=== PATIENT | female | born 2000 | race Two or more races ===

== ENCOUNTER 2024-04-26 03:37 | Emergency (ER) | payer MEDICAID, SELFPAY ==
[2024-04-26 03:53] VITALS: BP 114/72; PULSE 152; RESP 28; TEMP 37.6; O2SAT 100
--- NOTE | 2024-04-26 03:54 | XR_ITS ---
Examination: PA lateral chest 2 views Technique: Upright PA lateral chest 2 views Exam date and time: April 26, 2024 0407 hrs. Comparison August 23, 2018 Indications: Coughing wheezing fever today Findings: Normal heart size Lungs are clear. The osseous structures are intact Impression: No active disease
--- NOTE | 2024-04-26 03:55 | PD.EDSOB ---
ED SOB =RME/HPI General Chief Complaint: Abdominal Pain Stated Complaint: LOWER ABD PAIN, CHEST PAIN Time Seen by Provider: 04/26/24 03:46 Source: patient Arrival date/time: 04/26/24 03:37 23-year-old female with a history of asthma presents to the emergency room with a chief complaint of lower abdominal pain, shortness of breath, weakness, chest pain since 2 AM this morning. Mode of arrival: ambulatory Limitations: no limitations Related Data Previous Rx's ?Medication ?Instructions ?Recorded ondansetron 4 mg disintegrating 4 mg PO Q8H PRN nausea and 08/22/23 tablet vomiting #10 tabs Allergies Allergy/AdvReac Type Severity Reaction Status Date / Time No Known Allergies Allergy Verified 11/18/18 17:17 ED Exam General Limitations: Present no limitations Course Orders Category Date Time Status Bedside COVID-19 Antigen Test NOW Care 04/26/24 03:54 Active Bedside Influenza A&B Antigen Test NOW Care 04/26/24 03:54 Active XR chest 2V Stat Exams 04/26/24 03:54 Ordered Albuterol/Ipratr Rt Kathrine [Duoneb Rt Kathrine] Med 04/26/24 03:54 Discontinued 3 ml INH X1 ONE Dexamethasone Inj [Decadron Inj] Med 04/26/24 03:54 Discontinued 10 mg PO X1 ONE Vital Signs Vital signs: Vital Signs Temperature 99.6 F 04/26/24 03:53 Pulse Rate 152 H 04/26/24 03:53 Respiratory Rate 28 H 04/26/24 03:53 Blood Pressure 114/72 04/26/24 03:53 Pulse Oximetry (%) 100 04/26/24 03:53 Oxygen Delivery Method Room Air 04/26/24 03:53 Shortness of Breath / Dyspnea Medications / Prescriptions Medication administrations:: Medication Administration History Discontinued Medications Albuterol/Ipratropium (Albuterol/Ipratropium (Duoneb) Rt Kathrine 3 Ml Nebu) 3 ml INH X1 ONE Stop: 04/26/24 03:55 Dexamethasone Sodium Phosphate (Dexamethasone Sod Phos Inj 10 Mg/Ml Vial) 10 mg PO X1 ONE Stop: 04/26/24 03:55 Discharge Plan Prescriptions/Referrals Prescriptions/Med Rec: No Action ondansetron 4 mg tablet,disintegrating 4 mg PO Q8H PRN (Reason: nausea and vomiting) Qty: 10 0RF Patient/Caregiver Discharge Instructions Print Language: Chadian
--- NOTE | 2024-04-26 03:56 | EKG_ITS ---
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
[2024-04-26] MEDS: ONDANSETRON ODT 4 MG TABRAP PO ×2 (04:14→10:13)
[2024-04-26] MEDS: DEXAMETHASONE SOD PHOS INJ 10 MG/ML VIAL PO (04:15)
[2024-04-26 04:23] VITALS: PULSE 133; RESP 21; O2SAT 99
[2024-04-26] MEDS: ALBUTEROL/IPRATROPIUM (Duoneb) RT SOL 3 ML NEBU INH (04:23)
--- NOTE | 2024-04-26 04:42 | PD.EDRME ---
Rapid Medical Screening Exam [facility] Arrival date/time: 04/26/24 03:37 23-year-old female with a history of asthma presents to the emergency room with a chief complaint of lower abdominal pain, shortness of breath, weakness, chest pain since 2 AM this morning. I have greeted and performed a focused initial assessment of this patient. A comprehensive ED assessment and evaluation of the patient, analysis of all test results, and completion of the medical decision making process will be conducted by additional ED providers. Chief Complaint: Abdominal Pain Time Seen by Provider: 04/26/24 03:46 Vital signs: Vital Signs Temperature 99.6 F 04/26/24 03:53 Pulse Rate 152 H 04/26/24 03:53 Respiratory Rate 28 H 04/26/24 03:53 Blood Pressure 114/72 04/26/24 03:53 Pulse Oximetry (%) 100 04/26/24 03:53 Oxygen Delivery Method Room Air 04/26/24 03:53 Vital signs reviewed by provider: Yes
[2024-04-26 05:05] LABS: Basophils % (Auto) 0 % (0-2.5); Eosinophils # (Auto) 0.1 Thou/mm3 (0.0-0.5); Eosinophils % (Auto) 0 % (0-10); Hematocrit 36.4 % (36.0-46.0); Hemoglobin 12.5 g/dL (12.0-16.0); Immature Granulocytes % (Auto) 0 % (0-0); Immature Granulocytes Auto 0.04 Thou/mm3 (0.00-0.00); Lymphocytes # (Auto) 1.3 Thou/mm3 (1.0-4.8); Lymphocytes % (Auto) 9 % (10-50); Mean Corpuscular HGB Conc 34.3 g/dl (31.0-37.0); Mean Corpuscular Hemoglobin 26.7 pg (25.0-35.0); Mean Corpuscular Volume 78 fL (80-100); Monocytes % (Auto) 6 % (0-12); Neutrophils # (Auto) 12.6 Thou/mm3 (1.8-7.7); Neutrophils % (Auto) 84 % (37-80); Nucleated Red Blood Cell % 0 /100 WBC (0); Platelet Count 335 Thou/mm3 (140-440); RDW Standard Deviation 37.1 fL (36.4-46.3); Red Blood Count 4.69 Miln/mm3 (4.00-5.20)
[2024-04-26 05:26] LABS: Collection Type, Urine Clean Catch
[2024-04-26 05:37] LABS: Alanine Aminotransferase 11 U/L (10-49); Albumin, Serum 4.8 gm/dL (3.5-5.0); Albumin/Globulin Ratio 1.5 (1.2-2.2); Alkaline Phosphatase 70 U/L (46-116); Anion Gap 12 (7-16); Aspartate Amino Transferase 13 U/L (0-34); BUN/Creatinine Ratio 15 Ratio (12-20); Bilirubin,Total 0.5 mg/dL (0.3-1.2); Blood Urea Nitrogen 9 mg/dL (9-23); Calcium 9.5 mg/dL (8.3-10.6); Calcium (Corrected) 9.5 mg/dL (8.5-10.1); Carbon Dioxide 19.4 mMol/L (20.0-31.0); Chloride 104 mMol/L (98-107); Creatinine (Component) 0.6 mg/dL (0.6-1.3); Globulin 3.2 gm/dL (2.3-3.5); Glucose 111 mg/dL (74-106); Lipase 36 U/L (12-53); Osmolality,Calculated 269 (275-295); Potassium 3.8 mMol/L (3.4-5.1); Sodium 135 mMol/L (136-145); Troponin I < 0.002 ng/mL (0.0-0.045); eGFR > 60 See Note
[2024-04-26 05:42] LABS: Bacteria,Urine 2+; Bilirubin,Urine Negative (Negative); Blood,Urine Negative (Negative); Clarity,Urine Turbid (Clear/Hazy); Color,Urine Yellow (Lt Yel-Yel); Glucose, Urine Negative (Negative); Hyaline Casts,Urine < 1 /hpf (0-1); Ketones,Urine 1+ (Negative); Leukocyte Esterase,Urine Negative (Negative); Nitrite,Urine Negative (Negative); Protein,Urine 1+ (Neg - Trace); RBC,Urine 10 /hpf (0-3); Specific Gravity,Urine 1.026 (1.001-1.035); Squamous Epithelial Cell,Urine 7 /hpf (0-5); Urobilinogen,Urine Negative mg/dL (0.0-1.0); WBC,Urine 3 /hpf (0-5)
[2024-04-26 06:04] LABS: Culture Indicated,Urine Yes
[2024-04-26 06:22] LABS: HCG Qualitative,Urine Negative
[2024-04-26 07:06] VITALS: BP 117/80; PULSE 99; RESP 18; TEMP 37.2; O2SAT 98
--- NOTE | 2024-04-26 07:39 | XR_ITS ---
Examination: Retroperitoneal ultrasound, complete Technique: Multiple high resolution grayscale images of the retroperitoneum obtained, including kidneys and bladder. Exam date and time:April 26, 2024 at 0818 hrs. Indications: Burning sensation with urination beginning last night Findings: Right kidney 11.7 x 6.1 x 5.2 cm cortex 1.4 cm Left kidney 10.8 x 4.9 x 4.8 cm in the cortex 2.3 cm Mild left renal parenchymal scar formation No hydronephrosis Contracted urinary bladder, 0.78 cc Impression: Mild left renal parenchymal scar formation No hydronephrosis or ureteral calculi
--- NOTE | 2024-04-26 07:39 | XR_ITS ---
Examination: Pelvic ultrasound, transabdominal, complete Technique: Transabdominal ultrasound of the pelvis performed using grayscale imaging Date and time of exam: April 26, 2024 0806 hrs. Indications: Right pelvic pain beginning last night Findings: Uterus 6.8 x 3.3 x 4.1 cm No uterine mass or intrauterine gestation Endometrial stripe 1.1 cm Right ovary 2.6 x 1.8 x 1.8 cm arterial flow mild free fluid in the right adnexal region Left ovary 3.3 x 1.7 x 3.0 cm arterial flow Mild free fluid medial to the ovary Impression: No uterine mass or intrauterine gestation Mild free fluid in the adnexal regions, differential would include pelvic inflammatory disease
[2024-04-26 07:49] VITALS: BMI 28.7
--- NOTE | 2024-04-26 07:55 | EDNOTE_ITS ---
ED Abdominal Pain RME/HPI General Chief Complaint: Abdominal Pain Stated complaint: LOWER ABD PAIN, CHEST PAIN Time seen by provider: 04/26/24 03:46 Arrival date/time: 04/26/24 03:37 RME / HPI RME / HPI narrative: DR. LUTZ MAIN ED EVALUATION: 23 year old female, otherwise healthy, presents to the Emergency Department with complaint of lower abdominal pain onset 2 AM. Associated symptoms include mild shortness of breath, generalized weakness and chest pain. Symptoms are moderate. No vomiting, diarrhea, or other symptoms reported at this time. Related Data Previous Rx's ?Medication ?Instructions ?Recorded ondansetron 4 mg disintegrating 4 mg PO Q8H PRN nausea and 08/22/23 tablet vomiting #10 tabs Allergies Allergy/AdvReac Type Severity Reaction Status Date / Time No Known Allergies Allergy Verified 11/18/18 17:17 Review of Systems Review of Systems Systems Reviewed: All systems reviewed, normal except as documented Narrative Review of Systems: GEN: No fever, no chills, no weight loss EYES: No discharge, no visual changes, no pain HEENT: No ear pain, no congestion, no sore throat PULM: + mild shortness of breath, no cough, no congestion CV: + chest pain, no dyspnea on exertion, no palpitations GI: No nausea, no vomiting, no diarrhea, + lower abdominal pain, no constipation : No frequency, no urgency and no dysuria MUSC/SKEL: No joint pain, no back pain SKIN: No rash PSYCH: No hallucinations, no depression HEME/LYMPH: No easy bleeding or bruising tendencies NEURO: + generalized weakness, no one-sided weakness, no headache Past Medical History Past Medical History CARDIAC: Negative Cardiac Disorders or Congestive Heart Failure RESPIRATORY: Positive Asthma; Negative Chronic Obstructive Pulmonary Disease (COPD) GENITOURINARY: Negative Renal Disease ENDOCRINE: Negative Diabetes Mellitus Type 1 or Diabetes Mellitus Type 2 HEMATOLOGIC: Negative Sickle Cell Disease Social History SMOKING STATUS: Never smoker SUBSTANCE USE: does not use ALCOHOL: Never ED Exam Narrative Physical exam: GENERAL APPEARANCE: alert and oriented x 4, well-developed, well-nourished, no acute distress VITALS: All vitals were reviewed and the pulse ox is 98% on room air, which is normal according to my interpretation. HEENT: Normocephalic, atraumatic; pupils equal, round, reactive to light; EOMI; mucous membranes pink, moist; oropharynx clear NECK: Supple LUNGS: CTABL; no wheezes, no rales, no rhonchi HEART: Regular rate, regular rhythm; normal S1, S2; no murmurs ABDOMEN: non distended; normal BS; soft, no tenderness, no guarding, no rebound; no masses, no organomegaly, no hernia BACK: no CVA tenderness EXTREMITIES: atraumatic; no edema NEUROLOGIC: awake; alert and oriented x4; cranial nerves II-XII grossly intact; no focal sensory or motor deficits PSYCHIATRIC: appropriate mood and affect SKIN: warm, dry, normal color; no rashes Course Quality Measures none Orders Category Date Time Status Bedside COVID-19 Antigen Test NOW Care 04/26/24 03:54 Completed Bedside Influenza A&B Antigen Test NOW Care 04/26/24 03:54 Completed EKG (ED ONLY) *Do not use* NOW Care 04/26/24 03:56 Completed EKG (ED Only) Stat Exams 04/26/24 03:56 Ordered US pelvic complete Stat Exams 04/26/24 07:39 Completed US renal BI Stat Exams 04/26/24 07:39 Completed XR chest 2V Stat Exams 04/26/24 03:54 Completed CBC Stat Lab 04/26/24 04:36 Completed CMP [Comprehensive Metabolic Panel] Stat Lab 04/26/24 04:36 Completed HCG Qualitative,Urine Stat Lab 04/26/24 05:06 Completed Lipase Stat Lab 04/26/24 04:36 Completed Troponin I Stat Lab 04/26/24 04:36 Completed UA, C/S IF [Urinalysis, C/S if Indicated] Stat Lab 04/26/24 05:06 Completed Urine Culture Stat Lab 04/26/24 05:06 Received Albuterol/Ipratr Rt Kathrine [Duoneb Rt Kathrine] Med 04/26/24 03:54 Discontinued 3 ml INH X1 ONE Dexamethasone Inj [Decadron Inj] Med 04/26/24 03:54 Discontinued 10 mg PO X1 ONE Ibuprofen Tab [Motrin Tab] Med 04/26/24 09:56 Discontinued 600 mg PO X1 ONE Ondansetron Odt [Zofran Odt] Med 04/26/24 03:56 Discontinued 4 mg PO X1 ONE Ondansetron Odt [Zofran Odt] Med 04/26/24 09:56 Discontinued 4 mg PO X1 ONE Vital Signs Vital signs: Vital Signs Temperature 99.6 F 04/26/24 03:53 Pulse Rate 152 H 04/26/24 03:53 Respiratory Rate 28 H 04/26/24 03:53 Blood Pressure 114/72 04/26/24 03:53 Pulse Oximetry (%) 100 04/26/24 03:53 Oxygen Delivery Method Room Air 04/26/24 03:53 Abdominal Pain MDM MDM Narrative MDM Narrative:: I, Breana Aquino, rashaad scribing for and in the presence of Dr. Lutz. Patient data External records reviewed:: [facility] previous records (Reviewed last ED visit dated 08/23/23, discharged with the following: Abdominal pain) Clinical information provided by:: patient Social determinants that could affect healthcare access:: none Patient has the following chronic illnesses:: Denies any PMHx, surgeries, daily medications, or known allergies. How is presenting disease/condition affected by chronic disease/condition?: no chronic disease Evaluation data The following diagnostics were reviewed and interpreted by me:: lab results and radiology exam(s) Lab and/or radiology exams considered but not ordered:: none Interpretation Summary: Procedure(s): US renal BI Accession Number(s): [id number] cc: Leonardo Lopez MD; Bari Hinds; Cristina Lutz MD~ Examination: Retroperitoneal ultrasound, complete Technique: Multiple high resolution grayscale images of the retroperitoneum obtained, including kidneys and bladder. Exam date and time:April 26, 2024 at 0818 hrs. Indications: Burning sensation with urination beginning last night Findings: Right kidney 11.7 x 6.1 x 5.2 cm cortex 1.4 cm Left kidney 10.8 x 4.9 x 4.8 cm in the cortex 2.3 cm Mild left renal parenchymal scar formation No hydronephrosis Contracted urinary bladder, 0.78 cc Impression: Mild left renal parenchymal scar formation No hydronephrosis or ureteral calculi Dictated By: Leonardo Lopez MD Procedure(s): US pelvic complete Accession Number(s): [id number] cc: Leonardo Lopez MD; Bari Hinds; Cristina Lutz MD~ Examination: Pelvic ultrasound, transabdominal, complete Technique: Transabdominal ultrasound of the pelvis performed using grayscale imaging Date and time of exam: April 26, 2024 0806 hrs. Indications: Right pelvic pain beginning last night Findings: Uterus 6.8 x 3.3 x 4.1 cm No uterine mass or intrauterine gestation Endometrial stripe 1.1 cm Right ovary 2.6 x 1.8 x 1.8 cm arterial flow mild free fluid in the right adnexal region Left ovary 3.3 x 1.7 x 3.0 cm arterial flow Mild free fluid medial to the ovary Impression: No uterine mass or intrauterine gestation Mild free fluid in the adnexal regions, differential would include pelvic inflammatory disease Dictated By: Leonardo Lopez MD Procedure(s): XR chest 2V Accession Number(s): [id number] cc: Semaj Valdivia; Leonardo Lopez MD; Bari Hinds~ Examination: PA lateral chest 2 views Technique: Upright PA lateral chest 2 views Exam date and time: April 26, 2024 0407 hrs. Comparison August 23, 2018 Indications: Coughing wheezing fever today Findings: Normal heart size Lungs are clear. The osseous structures are intact Impression: No active disease Dictated By: Leonardo Lopez MD Medications / Prescriptions Medications or Prescriptions considered but not ordered:: none Medication administrations:: Medication Administration History Discontinued Medications Albuterol/Ipratropium (Albuterol/Ipratropium (Duoneb) Rt Kathrine 3 Ml Nebu) 3 ml INH X1 ONE Stop: 04/26/24 03:55 Last Admin: 04/26/24 04:23 Dose: 3 ml Documented By: NILAY Dexamethasone Sodium Phosphate (Dexamethasone Sod Phos Inj 10 Mg/Ml Vial) 10 mg PO X1 ONE Stop: 04/26/24 03:55 Last Admin: 04/26/24 04:15 Dose: 10 mg Documented By: DOLORES Ibuprofen (Ibuprofen Tab 600 Mg Tablet) 600 mg PO X1 ONE Stop: 04/26/24 09:57 Last Admin: 04/26/24 10:13 Dose: 600 mg Documented By: CYNTHIA Ondansetron HCl (Ondansetron Odt 4 Mg Tabrap) 4 mg PO X1 ONE; Protocol Stop: 04/26/24 03:57 Last Admin: 04/26/24 04:14 Dose: 4 mg Documented By: DOLORES Ondansetron HCl (Ondansetron Odt 4 Mg Tabrap) 4 mg PO X1 ONE; Protocol Stop: 04/26/24 09:57 Last Admin: 04/26/24 10:13 Dose: 4 mg Documented By: CYNTHIA see above Consultations Consultation(s) initiated? (list below): No Diagnosis Differential diagnosis abdominal pain: abdominal pain, calculus of kidney and other (pyelonephritis, UTI) Most likely diagnosis given after review of the tests above:: Abdominal pain Admission Indicated Admission indicated?: not indicated Admission Request Was there a request for admission?: No Disposition Plan Disposition Plan: Discharge Discharge Attestation Discharge Attestation: The patient and all family members were given an opportunity to ask questions and understood the discharge instructions. Discharge instructions specifically effects, indications for sooner follow up or return to the emergency department, and the expected course of current diagnosis. Patient condition: Stable Discharge Plan Plan Patient Disposition: HOME (Self Care) Prescriptions/Referrals Prescriptions/Med Rec: No Action ondansetron 4 mg tablet,disintegrating 4 mg PO Q8H PRN (Reason: nausea and vomiting) Qty: 10 0RF Referrals: Bari Hinds FNP [Primary Care Provider] - In 1 week Problem List Clinical Impression: Abdominal pain Patient/Caregiver Discharge Instructions Education Materials: ED Abdominal Pain Unkn Cause Fem Print Language: Ghanaian Stand Alone Forms: [place] Award Info., Work/School Release, Patient Portal Info Letter
[2024-04-26] MEDS: IBUPROFEN TAB 600 MG TABLET PO (10:13)
[2024-04-26 10:22] VITALS: BP 120/82; PULSE 91; RESP 18; TEMP 37.4; O2SAT 98
--- NOTE | 2024-04-26 11:30 | PC.NURSE ---
pt given fluids and sandwich, tolerated PO challenge well.
[2024-04-26 12:00] VITALS: BP 120/82; PULSE 87; RESP 16; TEMP 36.8; O2SAT 99
[2024-04-26 12:33] VITALS: BP 124/62; PULSE 90; RESP 16; TEMP 37.2; O2SAT 100
== END 2024-04-26 12:34 | disposition home or self-care (01) ==
PROVIDERS: Nurse Practitioner Family; Emergency Provider Emergency Medicine; PCP Nurse Practitioner Family
DX: R10.30 Lower abdominal pain, unspecified (principal)
CPT/HCPCS: 36415; 71046; 76770; 76856; 80053; 81001; 81025; 83690; 84484; 85025; 87086; 87400; 87811; 93005; 94640; 99284; A9270; J1100; Q0162

== ENCOUNTER → 2024-04-29 | Outpatient (CLI) | payer MEDICAID, SELFPAY ==
--- NOTE | 2024-04-29 13:34 | XR_ITS ---
Examination: PA lateral chest 2 views TECHNIQUE: Upright PA lateral chest 2 views Exam date and time: April 29, 2024 1436 hours Comparison April 26, 2024 INDICATIONS: Dyspnea chest pain and chest tightness beginning one week ago FINDINGS: Normal heart size Minor scarring at the left base No lobar pneumonia No pulmonary edema Intact osseous structures IMPRESSION: No lobar pneumonia identified
== END | disposition home or self-care (01) ==
PROVIDERS: PCP Nurse Practitioner Family; Referring Provider Nurse Practitioner Family; Visit Provider Nurse Practitioner Family
DX: R05.9 Cough, unspecified (principal)
CPT/HCPCS: 71046

== ENCOUNTER 2024-05-01 05:15 | Emergency (ER) | payer MEDICAID, SELFPAY ==
[2024-05-01 05:23] VITALS: BP 125/86; PULSE 115; RESP 19; TEMP 37.4; O2SAT 98; BMI 25.8
--- NOTE | 2024-05-01 05:33 | XR_ITS ---
Examination: PA lateral chest 2 views Technique: Upright PA lateral chest 2 views Exam date and time: May 01, 2024 0538 hrs. Comparison April 29, 2024 Indications: SOB beginning 1.5 weeks ago Findings: Normal heart size Lungs are clear. The osseous structures are intact Impression: No active disease
--- NOTE | 2024-05-01 05:35 | EDRME_ITS ---
Rapid Medical Screening Exam [facility] Arrival date/time: 05/01/24 05:15 23-year-old female with no known medical history presents to the emergency room with a chief complaint of cough, congestion, fevers, night sweats, and bruising to the bilateral lower extremities. Patient denies any trauma or falls. I have greeted and performed a focused initial assessment of this patient. A comprehensive ED assessment and evaluation of the patient, analysis of all test results, and completion of the medical decision making process will be conducted by additional ED providers. Chief Complaint: Back Pain/Injury Vital signs: Vital Signs Temperature 99.3 F 05/01/24 05:23 Pulse Rate 115 H 05/01/24 05:23 Respiratory Rate 19 05/01/24 05:23 Blood Pressure 125/86 H 05/01/24 05:23 Pulse Oximetry (%) 98 05/01/24 05:23 Oxygen Delivery Method Room Air 05/01/24 05:23 Vital signs reviewed by provider: Yes
[2024-05-01] MEDS: ACETAMINOPHEN 325 MG TABLET 650 MG PO (05:47)
[2024-05-01 06:26] LABS: Lactate (Lactic Acid) 0.8 mMol/L (0.4-2.0)
[2024-05-01 06:48] LABS: Basophils % (Auto) 0 % (0-2.5); Eosinophils % (Auto) 0 % (0-10); Hemoglobin 11.8 g/dL (12.0-16.0); Immature Granulocytes % (Auto) 0 % (0-0); Immature Granulocytes Auto 0.04 Thou/mm3 (0.00-0.00); Lymphocytes # (Auto) 2.1 Thou/mm3 (1.0-4.8); Lymphocytes % (Auto) 18 % (10-50); Mean Corpuscular HGB Conc 33.7 g/dl (31.0-37.0); Mean Corpuscular Hemoglobin 26.3 pg (25.0-35.0); Mean Corpuscular Volume 78 fL (80-100); Monocytes # (Auto) 0.7 Thou/mm3 (0.0-0.8); Monocytes % (Auto) 6 % (0-12); Neutrophils # (Auto) 8.5 Thou/mm3 (1.8-7.7); Neutrophils % (Auto) 75 % (37-80); Nucleated Red Blood Cell % 0 /100 WBC (0); Platelet Count 417 Thou/mm3 (140-440); RDW Standard Deviation 37.6 fL (36.4-46.3); Red Blood Count 4.48 Miln/mm3 (4.00-5.20); White Blood Count 11.4 Thou/mm3 (3.6-11.0)
[2024-05-01 07:18] LABS: Alanine Aminotransferase 9 U/L (10-49); Albumin, Serum 4.5 gm/dL (3.5-5.0); Albumin/Globulin Ratio 1.5 (1.2-2.2); Alkaline Phosphatase 67 U/L (46-116); Anion Gap 9 (7-16); Aspartate Amino Transferase < 8 U/L (0-34); BUN/Creatinine Ratio 10 Ratio (12-20); Bilirubin,Total 0.4 mg/dL (0.3-1.2); Blood Urea Nitrogen 7 mg/dL (9-23); C-Reactive Protein 7.7 mg/dL (0.0-0.9); Calcium 9.3 mg/dL (8.3-10.6); Calcium (Corrected) 9.3 mg/dL (8.5-10.1); Carbon Dioxide 21.8 mMol/L (20.0-31.0); Chloride 106 mMol/L (98-107); Creatinine (Component) 0.7 mg/dL (0.6-1.3); Estimated Creatinine Clearance 115.3 mL/min (>60); Glucose 108 mg/dL (74-106); Osmolality,Calculated 272 (275-295); Potassium 3.8 mMol/L (3.4-5.1); Procalcitonin 0.08 ng/ml (0.0-0.49); Sodium 137 mMol/L (136-145); Total Protein 7.5 gm/dL (5.7-8.2); eGFR > 60 See Note
[2024-05-01 08:10] VITALS: BP 116/79; PULSE 70; RESP 18; TEMP 36.8; O2SAT 99
--- NOTE | 2024-05-01 08:13 | PD.EDADULT ---
ED General RME/HPI General Chief complaint: Back Pain/Injury Stated complaint: Lower back pain, Wrist pain Time Seen by Provider: 05/01/24 06:26 Arrival date/time: 05/01/24 05:15 23-year-old female presents emergency department complaint of generalized bodyaches, cough, congestion and fever and bruising to bilateral lower extremities patient for symptoms ongoing x 1 week Limitations: no limitations RME / HPI RME / HPI narrative: 05/01/24 05:15 23-year-old female with no known medical history presents to the emergency room with a chief complaint of cough, congestion, fevers, night sweats, and bruising to the bilateral lower extremities. Patient denies any trauma or falls. I have greeted and performed a focused initial assessment of this patient. A comprehensive ED assessment and evaluation of the patient, analysis of all test results, and completion of the medical decision making process will be conducted by additional ED providers. Related Data Previous Rx's ?Medication ?Instructions ?Recorded ondansetron 4 mg disintegrating 4 mg PO Q8H PRN nausea and 08/22/23 tablet vomiting #10 tabs acetaminophen 500 mg capsule 1,000 mg (2 x 500 mg) PO Q8HR PRN 05/01/24 pain #30 caps ibuprofen 600 mg tablet 600 mg PO Q6H #30 tabs 05/01/24 Allergies Allergy/AdvReac Type Severity Reaction Status Date / Time No Known Allergies Allergy Verified 11/18/18 17:17 Review of Systems Review of Systems Systems Reviewed: All systems reviewed, normal except as documented Constitutional Constitutional: Reports system reviewed and no additional complaints, except as documented, Reports body ache(s), Reports chills, Reports fatigue, Reports fever(s) and Reports headache(s) Eyes Eyes: Reports system reviewed and no additional complaints, except as documented and Denies blurry vision ENT Ears, Nose, Mouth, and Throat: Reports system reviewed and no additional complaints, except as documented, Reports headache(s), Denies nasal congestion and Reports nasal discharge Cardiovascular Cardiovascular: Reports system reviewed and no additional complaints, except as documented, Denies chest pain and Denies dyspnea Respiratory Respiratory: Reports system reviewed and no additional complaints, except as documented, Denies chest congestion, Denies cough and Denies dyspnea Gastrointestinal Gastrointestinal: Reports system reviewed and no additional complaints, except as documented and Denies abdominal pain Integumentary/Breasts Skin/Breast: Reports system reviewed and no additional complaints, except as documented, Denies rash and Reports other (Bilateral lower extremity erythema nodosum) Neurologic Neurologic: Reports system reviewed and no additional complaints, except as documented, Reports as per HPI and Reports headache(s) Endocrine Endocrine: Reports fatigue Past Medical History Past Medical History CARDIAC: Negative Cardiac Disorders or Congestive Heart Failure RESPIRATORY: Positive Asthma; Negative Chronic Obstructive Pulmonary Disease (COPD) GENITOURINARY: Negative Renal Disease ENDOCRINE: Negative Diabetes Mellitus Type 1 or Diabetes Mellitus Type 2 HEMATOLOGIC: Negative Sickle Cell Disease Social History SMOKING STATUS: Never smoker SUBSTANCE USE: does not use ED Exam General Limitations: Present no limitations General appearance: Present alert and in no apparent distress Head Head exam: Present atraumatic, normocephalic and normal inspection Eye Eye exam: Present normal appearance, PERRL and EOMI; Absent conjunctival injection ENT ENT exam: Present normal exam, normal oropharynx and mucous membranes moist Neck Neck exam: Present normal inspection, full ROM and trachea midline; Absent tenderness, meningismus or lymphadenopathy Chest Chest inspection: Present normal inspection and symmetric chest wall rise Respiratory Respiratory exam: Present normal lung sounds bilaterally; Absent respiratory distress, wheezes, stridor or accessory muscle use Cardiovascular Cardiovascular exam: Present regular rate, normal rhythm and normal heart sounds Abdominal Exam Abdominal exam: Present soft and normal bowel sounds; Absent distention, tenderness, guarding, rebound or rigidity Extremities Exam Extremities exam: Present full ROM and other (Erythema nodosum bilateral lower extremities) Back Exam Back exam: Present normal inspection and full ROM Neurological Exam Neurological exam: Present alert, oriented X3, CN II-XII intact, normal gait and reflexes normal; Absent motor sensory deficit Psychiatric Psychiatric exam: Present normal affect and normal mood Skin Skin exam: Present warm, dry, intact and normal color; Absent rash Course Quality Measures none Orders Category Date Time Status Bedside COVID-19 Antigen Test NOW Care 05/01/24 05:34 Completed Bedside Influenza A&B Antigen Test NOW Care 05/01/24 05:34 Completed XR chest 2V Stat Exams 05/01/24 05:33 Completed CBC Stat Lab 05/01/24 06:15 Completed CMP [Comprehensive Metabolic Panel] Stat Lab 05/01/24 06:15 Completed CRP [C-Reactive Protein] Stat Lab 05/01/24 06:15 Completed Cocci Serology IgM with reflex to IgG [Cocci Serology, Lab 05/01/24 06:15 Completed Unk History] Stat ESR [Sed Rate (ESR)] Stat Lab 05/01/24 06:15 Completed HCG Qualitative,Urine Stat Lab 05/01/24 08:15 Completed Lactate (Lactic Acid) Stat Lab 05/01/24 06:15 Completed Procalcitonin Stat Lab 05/01/24 06:15 Completed UA, C/S IF [Urinalysis, C/S if Indicated] Stat Lab 05/01/24 08:15 Completed Acetaminophen Tab [Tylenol Tab] Med 05/01/24 05:38 Discontinued 650 mg PO X1 ONE Vital Signs Vital signs: Vital Signs Temperature 99.3 F 05/01/24 05:23 Pulse Rate 115 H 05/01/24 05:23 Respiratory Rate 19 05/01/24 05:23 Blood Pressure 125/86 H 05/01/24 05:23 Pulse Oximetry (%) 98 05/01/24 05:23 Oxygen Delivery Method Room Air 05/01/24 05:23 O2 saturation 98% room air within normal limits [facility] Patient data External records reviewed:: [facility] previous records Clinical information provided by:: patient and parent Social determinants that could affect healthcare access:: none Patient has the following chronic illnesses:: None How is presenting disease/condition affected by chronic disease/condition?: no chronic disease Evaluation data The following diagnostics were reviewed and interpreted by me:: lab results and radiology exam(s) Lab and/or radiology exams considered but not ordered:: Labs radiology obtain Interpretation Summary: Reviewed by me Medications Medications considered but not ordered:: Given Medication administrations:: Medication Administration History Discontinued Medications Acetaminophen (Acetaminophen 325 Mg Tablet) 650 mg PO X1 ONE Stop: 05/01/24 05:39 Last Admin: 05/01/24 05:47 Dose: 650 mg Documented By: CVL Given Consultations Consultation(s) initiated? (list below): No Diagnosis Differential Diagnosis ED Complaint MDM: URI, viral illness, COVID-19, pneumonia, cocci Most likely diagnosis given after review of the tests above:: Influenza, cocci Admission Indicated Admission indicated?: not indicated Explain why admission is indicated or not indicated:: No criteria Admission Request Was there a request for admission?: No Disposition Plan Disposition Plan: Discharge Discharge Attestation Discharge Attestation: The patient and all family members were given an opportunity to ask questions and understood the discharge instructions. Discharge instructions specifically effects, indications for sooner follow up or return to the emergency department, and the expected course of current diagnosis. Patient condition: Stable Medical Decision Making MDM Narrative MDM Narrative: 23-year-old female presents emergency department complaint of generalized bodyaches, cough, congestion and fever and bruising to bilateral lower extremities patient for symptoms ongoing x 1 week Lab work and imaging obtained by my colleague Patient does have erythema nodosum lower extremities I suspect patient may have coccidiomycosis Lab work obtained chest x-ray obtained Patient tested positive for influenza Cocci is pending At time of discharge patient reports symptoms have improved patient walks with steady gait, patient has strict instructions to return immediately for worsening symptoms Patient discharged home in no distress to follow-up with primary care doctor in the next 24 to 48 hours and for any worsening symptoms to return to the ER immediately Differential Diagnosis Differential Diagnosis: URI, viral illness, COVID-19, pneumonia, cocci Medical Records Medical records reviewed: Yes I reviewed the patient's medical records. Lab Data Lab results reviewed: Yes I reviewed the patient's lab results. 05/01/24 06:15 05/01/24 06:15 Labs: Lab Results 05/01/24 05/01/24 Range/Units 06:15 08:15 WBC 11.4 H (3.6-11.0) Thou/mm3 RBC 4.48 (4.00-5.20) Miln/mm3 Hgb 11.8 L (12.0-16.0) g/dL Hct 35.0 L (36.0-46.0) % MCV 78 L (80-100) fL MCH 26.3 (25.0-35.0) pg MCHC 33.7 (31.0-37.0) g/dl RDW Std Deviation 37.6 (36.4-46.3) fL Plt Count 417 D (140-440) Thou/mm3 Neut % (Auto) 75 (37-80) % Lymph % (Auto) 18 (10-50) % [place] % (Auto) 6 (0-12) % Eos % (Auto) 0 (0-10) % Baso % (Auto) 0 (0-2.5) % Neut # (Auto) 8.5 H (1.8-7.7) Thou/mm3 Lymph # (Auto) 2.1 (1.0-4.8) Thou/mm3 [place] # (Auto) 0.7 (0.0-0.8) Thou/mm3 Eos # (Auto) 0.0 (0.0-0.5) Thou/mm3 Baso # (Auto) 0.0 (0.0-0.2) Thou/mm3 Immature Gran # (Auto) 0.04 H (0.00-0.00) Thou/mm3 Absolute Nucleated RBC 0.00 (0.00-0.00) Thou/mm3 Immature Gran % 0 (0-0) % Nucleated RBC % 0 (0) /100 WBC ESR 60 H (0-20) mm/hr Sodium 137 (136-145) mMol/L Potassium 3.8 (3.4-5.1) mMol/L Chloride 106 (98-107) mMol/L Carbon Dioxide 21.8 (20.0-31.0) mMol/L Anion Gap 9 (7-16) BUN 7 L (9-23) mg/dL Creatinine 0.7 (0.6-1.3) mg/dL Estim Creat Clear Calc 115.3 (>60) mL/min eGFR > 60 (60 - ) See Note BUN/Creatinine Ratio 10 L (12-20) Ratio Glucose 108 H (74-106) mg/dL Calculated Osmolality 272 L (275-295) Lactic Acid 0.8 (0.4-2.0) mMol/L Calcium 9.3 (8.3-10.6) mg/dL Corrected Calcium 9.3 (8.5-10.1) mg/dL Total Bilirubin 0.4 (0.3-1.2) mg/dL AST < 8 (0-34) U/L ALT 9 L (10-49) U/L Alkaline Phosphatase 67 (46-116) U/L C-Reactive Prot, Quant 7.7 H (0.0-0.9) mg/dL Total Protein 7.5 (5.7-8.2) gm/dL Albumin 4.5 (3.5-5.0) gm/dL Globulin 3.0 (2.3-3.5) gm/dL Albumin/Globulin Ratio 1.5 (1.2-2.2) Procalcitonin 0.08 (0.0-0.49) ng/ml Ur Collection Type Clean Catch Urine Color Lt-Yellow (Lt Yel-Yel) Urine Clarity Clear (Clear/Hazy) Urine pH 7.0 (5.0-7.0) Ur Specific [place] 1.017 (1.001-1.035) Urine Protein Negative (Neg - Trace) Urine Glucose (UA) Negative (Negative) Urine Ketones Negative (Negative) Urine Blood Negative (Negative) Urine Nitrite Negative (Negative) Urine Bilirubin Negative (Negative) Urine Urobilinogen (Auto) Negative (0.0-1.0) mg/dL Ur Leukocyte Esterase Negative (Negative) Urine RBC 2 (0-3) /hpf Urine WBC 5 (0-5) /hpf Ur Squamous Epith Cells 1 (0-5) /hpf Urine Bacteria Rare (None) Ur Culture Indicated? Not Indicated Urine HCG, Qual Negative Coccidioides IgG Ab Negative (Negative) Coccidioides IgM Ab Negative (Negative) Radiology Data Radiology results reviewed: Yes I reviewed the patient's radiology results. Discharge Plan Plan Patient Disposition: HOME (Self Care) Disposition Comment: Stable Prescriptions/Referrals Prescriptions/Med Rec: New acetaminophen 500 mg capsule 1,000 mg PO Q8HR PRN (Reason: pain) Qty: 30 0RF ibuprofen 600 mg tablet 600 mg PO Q6H Qty: 30 0RF No Action ondansetron 4 mg tablet,disintegrating 4 mg PO Q8H PRN (Reason: nausea and vomiting) Qty: 10 0RF Referrals: Bari Hinds FNP [Primary Care Provider] - 05/02/24 Problem List Clinical Impression: Influenza A, Erythema nodosum Patient/Caregiver Discharge Instructions Education Materials: ED Influenza (Adult) Additional Instructions: Please follow up with your primary care doctor in the next 24-48hrs for any worsening symptoms return here immediately It is very important you follow-up for your valley fever results you must see your PCP for referral to specialist for worsening symptoms or concerns return immediately Print Language: Mosotho Stand Alone Forms: [place] Award Info., Work/School Release, Patient Portal Info Letter CELINE/JAYME Supervising Physician CELINE/JAYME Supervising Physician: Dr Morin
[2024-05-01 08:19] LABS: Collection Type, Urine Clean Catch
[2024-05-01 08:43] LABS: Bacteria,Urine Rare; Bilirubin,Urine Negative (Negative); Blood,Urine Negative (Negative); Clarity,Urine Clear (Clear/Hazy); Color,Urine Lt-Yellow (Lt Yel-Yel); Culture Indicated,Urine Not Indicated; Glucose, Urine Negative (Negative); Ketones,Urine Negative (Negative); Leukocyte Esterase,Urine Negative (Negative); Nitrite,Urine Negative (Negative); Protein,Urine Negative (Neg - Trace); RBC,Urine 2 /hpf (0-3); Specific Gravity,Urine 1.017 (1.001-1.035); Squamous Epithelial Cell,Urine 1 /hpf (0-5); Urobilinogen,Urine Negative mg/dL (0.0-1.0); WBC,Urine 5 /hpf (0-5)
[2024-05-01 08:44] LABS: HCG Qualitative,Urine Negative
[2024-05-01 11:55] LABS: Sed Rate (ESR) 60 mm/hr (0-20)
[2024-05-01 14:21] LABS: Cocci Serology, IgM Negative (Negative)
[2024-05-02 13:58] LABS: Cocci Serology, IgG Negative (Negative)
== END 2024-05-01 10:00 | disposition home or self-care (01) ==
PROVIDERS: Nurse Practitioner Family; Nurse Practitioner Primary Care; Emergency Provider Emergency Medicine; PCP Nurse Practitioner Family
DX: J10.1 Influenza due to other identified influenza virus with other respiratory manifestations (principal); L52 Erythema nodosum
CPT/HCPCS: 36415; 71046; 80053; 81001; 81025; 83605; 84145; 85025; 85652; 86140; 86331; 86635; 87400; 87811; 99283; A9270

== ENCOUNTER → 2024-08-12 | Outpatient (CLI) | payer MEDICAID, SELFPAY ==
--- NOTE | 2024-08-12 15:48 | XR_ITS ---
Examination: PA lateral chest 2 views TECHNIQUE: Upright PA lateral chest 2 views Exam date and time: August 12, 2024 1600 hours INDICATIONS: Shortness of breath this week. FINDINGS: Normal heart size Lungs are clear. The osseous structures are intact IMPRESSION: No active disease
== END | disposition home or self-care (01) ==
PROVIDERS: PCP Physician Assistant; Referring Provider Physician Assistant; Visit Provider Physician Assistant
DX: B38.9 Coccidioidomycosis, unspecified (principal)
CPT/HCPCS: 71046

== ENCOUNTER 2024-08-19 12:52 | Emergency (ER) | payer MEDICAID, SELFPAY ==
[2024-08-19 13:46] VITALS: BP 122/82; PULSE 94; RESP 18; TEMP 36.7; O2SAT 99; BMI 28.5
--- NOTE | 2024-08-19 13:55 | XR_ITS ---
Examination: OB Transvaginal ultrasound of the pelvis, complete Technique: Transvaginal sonographic images pelvis performed using jackson scale imaging Exam date and time: August 19, 2024 1446 hours INDICATIONS: Pelvic pain one week with onset vaginal bleeding today FINDINGS: Uterus 7.4 cm pole 0.2 cm corresponds to 5 weeks 5 day gestational age No cardiac motion Right ovary 2.4 cm arterial flow Left ovary 2.1 cm arterial flow IMPRESSION: Intrauterine gestation with pole but no cardiac activity, corresponding to 5 weeks 5 day gestational age Gestational sac is low in position in the uterus Recommend short-term follow-up transvaginal pelvic sonography to confirm spontaneous in progress
--- NOTE | 2024-08-19 13:56 | PD.EDRME ---
Rapid Medical Screening Exam RME Arrival date/time: 08/19/24 12:52 This is a 24-year-old female that comes into the emergency room with complaints of vaginal bleeding. Patient states she is approximately 8 weeks . Patient's last menstrual period was mid June. Patient states she is a 1 para 0. Patient complains of lower abdominal cramping. Patient denies urinary symptoms I have greeted and performed a focused initial assessment of this patient. Initial appropriate labs ordered at this time. A comprehensive ED assessment and evaluation of the patient and analysis of all test and completion of medical decision making process will be conducted by additional ED provider. Chief Complaint: Abdominal Pain Time Seen by Provider: 08/19/24 13:12 Vital signs: Vital Signs Temperature 98.1 F 08/19/24 13:46 Pulse Rate 94 08/19/24 13:46 Respiratory Rate 18 08/19/24 13:46 Blood Pressure 122/82 08/19/24 13:46 Pulse Oximetry (%) 99 08/19/24 13:46 Oxygen Delivery Method Room Air 08/19/24 13:46
--- NOTE | 2024-08-19 14:01 | EDNOTE_ITS ---
<Statement entered by Cristina Lutz MD - 08/20/24 09:01> As co-signing physician, I was present and available for consult prn. I concur with the plan and care as documented by the midlevel provider. ED General RME/HPI General Chief complaint: Abdominal Pain Stated complaint: LWR ABD PAIN, VAGINAL BLEEDING, 8 WKS PREG Time Seen by Provider: 08/19/24 13:12 Arrival date/time: 08/19/24 12:52 CC: Low center abdominal cramping with the bleeding starting this morning. Patient is a G1, P0 pain is an 8 on a 10 scale mild nausea. RME / HPI RME / HPI narrative: 08/19/24 12:52 This is a 24-year-old female that comes into the emergency room with complaints of vaginal bleeding. Patient states she is approximately 8 weeks . Patient's last menstrual period was mid June. Patient states she is a 1 para 0. Patient complains of lower abdominal cramping. Patient denies urinary symptoms I have greeted and performed a focused initial assessment of this patient. Initial appropriate labs ordered at this time. A comprehensive ED assessment and evaluation of the patient and analysis of all test and completion of medical decision making process will be conducted by additional ED provider. Related Data Previous Rx's ?Medication ?Instructions ?Recorded ondansetron 4 mg disintegrating 4 mg PO Q8H PRN nausea and 08/22/23 tablet vomiting #10 tabs acetaminophen 500 mg capsule 1,000 mg (2 x 500 mg) PO Q8HR PRN 05/01/24 pain #30 caps ibuprofen 600 mg tablet 600 mg PO Q6H #30 tabs 05/01 Allergies Allergy/AdvReac Type Severity Reaction Status Date / Time No Known Allergies Allergy Verified 08/19/24 12:56 Review of Systems Review of Systems Narrative Review of Systems: GEN: No fever, no chills, no weight loss EYES: No discharge, no visual changes, no pain HEENT: No ear pain, no congestion, no sore throat PULM: No shortness of breath, no cough, no congestion CV: No chest pain, no dyspnea on exertion, no palpitations GI: No nausea, no vomiting, no diarrhea, no pain, no constipation : No frequency, no urgency, no dysuria MUSC/SKEL: No joint pain, no back pain SKIN: No rash PSYCH: No hallucinations, no depression HEME/LYMPH: No easy bleeding or bruising tendencies NEURO: No weakness, no headache Past Medical History Past Medical History CARDIAC: Negative Cardiac Disorders or Congestive Heart Failure RESPIRATORY: Positive Asthma; Negative Chronic Obstructive Pulmonary Disease (COPD) GENITOURINARY: Negative Renal Disease ENDOCRINE: Negative Diabetes Mellitus Type 1 or Diabetes Mellitus Type 2 HEMATOLOGIC: Negative Sickle Cell Disease Social History SMOKING STATUS: Never smoker SUBSTANCE USE: does not use ED Exam Narrative Physical exam: [General: Obese in moderate discomfort but not in any acute distress Head normocephalic HEENT: Within acceptable limits Neck is supple nontender Chest equal chest rise nontender to palpation Respiratory: Clear to auscultation no wheezes crackles or rubs CV: Rate rhythm is regular no murmurs rubs or clicks Abdomen suprapubic pain with tenderness with palpation. The balance of the abdomen is nontender. Back: No CVA tenderness no spinous process tenderness from cervical spine thoracic and lumbar spine Skin: Intact no petechiae rash induration ulceration or crepitus Extremities: Moving all extremity against resistance cap refill less than 2 seconds neurosensory intact Neuro: Awake alert oriented x3 Glascow coma 15 no focal deficits] Course Quality Measures none Orders Category Date Time Status US OB transvaginal Stat Exams 08/19/24 13:55 Completed ABO/RH Type - Stat Lab 08/19/24 14:04 Completed Beta HCG,Quantitative Stat Lab 08/19/24 14:04 Completed CBC Stat Lab 08/19/24 14:04 Completed Comprehensive Metabolic Panel Stat Lab 08/19/24 14:04 Completed Urinalysis, C/S if Indicated Stat Lab 08/19/24 14:55 Completed Urine Culture Stat Lab 08/19/24 14:55 Received Acetaminophen Tab [Tylenol Tab] Med 08/19/24 14:00 Discontinued 650 mg PO X1 ONE Ondansetron Odt [Zofran Odt] Med 08/19/24 14:00 Discontinued 4 mg PO X1 ONE Vital Signs Vital signs: Vital Signs Temperature 98.1 F 08/19/24 13:46 Pulse Rate 94 08/19/24 13:46 Respiratory Rate 18 08/19/24 13:46 Blood Pressure 122/82 08/19/24 13:46 Pulse Oximetry (%) 99 08/19/24 13:46 Oxygen Delivery Method Room Air 08/19/24 13:46 Discharge Plan Plan Patient Disposition: HOME (Self Care) Patient condition on transfer: Stable Prescriptions/Referrals Prescriptions/Med Rec: No Action ondansetron 4 mg tablet,disintegrating 4 mg PO Q8H PRN (Reason: nausea and vomiting) Qty: 10 0RF acetaminophen 500 mg capsule 1,000 mg PO Q8HR PRN (Reason: pain) Qty: 30 0RF ibuprofen 600 mg tablet 600 mg PO Q6H Qty: 30 0RF Referrals: Janene Silveira PA-C [Primary Care Provider] - In 1 week Problem List Clinical Impression: Miscarriage Patient/Caregiver Discharge Instructions Other Activity Instructions:: Rest drink plenty of fluids take ibuprofen or Tylenol for pain. You will be passing more clots and bleeding with cramping. Make sure you return to your RESIDENT CARE PROVIDER or the emergency room primary care provider to make sure your quantitative hCG or hGH level is decreasing. Currently it is at 5500. If you spike a high fever or have increased pain that is not relieved with ibuprofen or Tylenol return to the emergency room for reevaluation. Education Materials: Loss Grieving, Understanding Miscarriage ..., Miscarriage Trying Again Print Language: Salvadorean Stand Alone Forms: [employer] Award Info., Work/School Release, Patient Portal Info Letter ALONDRA Supervising Physician ALONDRA Supervising Physician: Salbador Simmons ENP [facility] Clinical Information Provided by: patient Medical Records reviewed [facility] Meds/Rx considered, not ordered None Labs/Rad/Tests considered, not ordered None Labs Labs: Interpreted by wi Lab(s) Interpretation(s): CBC shows no leukocytosis anemia thrombocytopenia CMP shows no electrolyte imbalances renal impairment transaminitis or T. bili elevation Urine shows 3+ blood 2+ ketones 28 RBC 15 WBCs rare bacteria. ABO Rh is a positive Beta hCG is 5590 Imaging Imaging interpretation: Personal Interpretations Imaging Interpretation(s): Ultrasound is interpreted by radiology shows a of 5 weeks and 5 days no pole low in the abdomen highly suspicious for spontaneous miscarriage. Medication Administration(s) Medication Administration History Discontinued Medications Acetaminophen (Acetaminophen 325 Mg Tablet) 650 mg PO X1 ONE Stop: 08/19/24 14:01 Last Admin: 08/19/24 14:16 Dose: 650 mg Documented By: YEYO Ondansetron HCl (Ondansetron Odt 4 Mg Tabrap) 4 mg PO X1 ONE; Protocol Stop: 08/19/24 14:01 Last Admin: 08/19/24 14:16 Dose: 4 mg Documented By: YEYO
[2024-08-19 14:12] LABS: Basophils % (Auto) 0 % (0-2.5); Eosinophils % (Auto) 0 % (0-10); Hematocrit 38.1 % (36.0-46.0); Hemoglobin 12.6 g/dL (12.0-16.0); Immature Granulocytes % (Auto) 0 % (0-0); Immature Granulocytes Auto 0.01 Thou/mm3 (0.00-0.00); Lymphocytes # (Auto) 1.6 Thou/mm3 (1.0-4.8); Lymphocytes % (Auto) 21 % (10-50); Mean Corpuscular HGB Conc 33.1 g/dl (31.0-37.0); Mean Corpuscular Hemoglobin 25.9 pg (25.0-35.0); Mean Corpuscular Volume 78 fL (80-100); Monocytes # (Auto) 0.4 Thou/mm3 (0.0-0.8); Monocytes % (Auto) 6 % (0-12); Neutrophils # (Auto) 5.3 Thou/mm3 (1.8-7.7); Neutrophils % (Auto) 73 % (37-80); Nucleated Red Blood Cell % 0 /100 WBC (0); Platelet Count 308 Thou/mm3 (140-440); RDW Standard Deviation 42.9 fL (36.4-46.3); Red Blood Count 4.86 Miln/mm3 (4.00-5.20); White Blood Count 7.3 Thou/mm3 (3.6-11.0)
[2024-08-19] MEDS: ONDANSETRON ODT 4 MG TABRAP PO (14:16)
[2024-08-19] MEDS: ACETAMINOPHEN 325 MG TABLET 650 MG PO (14:16)
[2024-08-19 15:02] LABS: Alanine Aminotransferase 9 U/L (10-49); Albumin, Serum 4.9 gm/dL (3.5-5.0); Albumin/Globulin Ratio 1.8 (1.2-2.2); Alkaline Phosphatase 62 U/L (46-116); Anion Gap 8 (7-16); Aspartate Amino Transferase 14 U/L (0-34); BUN/Creatinine Ratio 12 Ratio (12-20); Beta HCG,Quantitative 5590 mIU/mL (<5.0); Bilirubin,Total 0.6 mg/dL (0.3-1.2); Blood Urea Nitrogen 6 mg/dL (9-23); Calcium 9.7 mg/dL (8.3-10.6); Calcium (Corrected) 9.7 mg/dL (8.5-10.1); Carbon Dioxide 24.1 mMol/L (20.0-31.0); Chloride 104 mMol/L (98-107); Creatinine (Component) 0.5 mg/dL (0.6-1.3); Estimated Creatinine Clearance 161.2 mL/min (>60); Globulin 2.7 gm/dL (2.3-3.5); Glucose 94 mg/dL (74-106); Osmolality,Calculated 269 (275-295); Potassium 3.7 mMol/L (3.4-5.1); Sodium 136 mMol/L (136-145); Total Protein 7.6 gm/dL (5.7-8.2); eGFR > 60 See Note
[2024-08-19 15:04] LABS: Collection Type, Urine Voided
[2024-08-19 15:31] LABS: Bacteria,Urine Rare; Bilirubin,Urine Negative (Negative); Blood,Urine 3+ (Negative); Color,Urine Lt-Yellow (Lt Yel-Yel); Glucose, Urine Negative (Negative); Ketones,Urine 2+ (Negative); Leukocyte Esterase,Urine Negative (Negative); Nitrite,Urine Negative (Negative); Protein,Urine Negative (Neg - Trace); RBC,Urine 28 /hpf (0-3); Specific Gravity,Urine 1.011 (1.001-1.035); Squamous Epithelial Cell,Urine 4 /hpf (0-5); Urobilinogen,Urine Negative mg/dL (0.0-1.0); WBC,Urine 15 /hpf (0-5)
[2024-08-19 15:42] LABS: Clarity,Urine Hazy (Clear/Hazy); Culture Indicated,Urine Yes
[2024-08-19 15:48] VITALS: BP 125/83; PULSE 80; RESP 18; TEMP 36.8; O2SAT 100
== END 2024-08-19 16:17 | disposition home or self-care (01) ==
PROVIDERS: Nurse Practitioner Family; Emergency Provider Emergency Medicine; PCP Physician Assistant
DX: O03.9 Complete or unspecified spontaneous abortion without complication (principal)
CPT/HCPCS: 36415; 76817; 80053; 81001; 84702; 85025; 86900; 86901; 87086; 99284; Q0162; A9270

== ENCOUNTER 2024-08-22 10:16 | Emergency (ER) | payer MEDICAID, SELFPAY ==
[2024-08-22 10:31] VITALS: BP 121/74; PULSE 78; RESP 18; TEMP 36.8; O2SAT 99; BMI 27.8
--- NOTE | 2024-08-22 10:35 | XR_ITS ---
Examination: OB Transvaginal ultrasound of the pelvis, complete Technique: Transvaginal sonographic images pelvis performed using jackson scale imaging Exam date and time: August 22, 2024 1113 hours INDICATIONS: Vaginal bleeding beginning 2 weeks ago pelvic pain beginning one week ago FINDINGS: Uterus 7.3 cm with thickened endometrium in the lower uterine segment cervix measuring up to 13 mm No intrauterine gestation Right ovary 2.8 cm arterial flow Left ovary 2.8 cm arterial flow small bilateral ovarian follicles IMPRESSION: Findings most consistent with retained process of conception in the lower uterine segment cervix, recommend short-term follow-up transvaginal pelvic sonography.
[2024-08-22 11:20] LABS: Basophils % (Auto) 1 % (0-2.5); Eosinophils % (Auto) 1 % (0-10); Hemoglobin 11.9 g/dL (12.0-16.0); Immature Granulocytes % (Auto) 0 % (0-0); Immature Granulocytes Auto 0.01 Thou/mm3 (0.00-0.00); Lymphocytes # (Auto) 1.4 Thou/mm3 (1.0-4.8); Lymphocytes % (Auto) 33 % (10-50); Mean Corpuscular HGB Conc 33.1 g/dl (31.0-37.0); Mean Corpuscular Hemoglobin 25.9 pg (25.0-35.0); Mean Corpuscular Volume 78 fL (80-100); Monocytes # (Auto) 0.3 Thou/mm3 (0.0-0.8); Monocytes % (Auto) 7 % (0-12); Neutrophils # (Auto) 2.6 Thou/mm3 (1.8-7.7); Neutrophils % (Auto) 59 % (37-80); Nucleated Red Blood Cell % 0 /100 WBC (0); Platelet Count 301 Thou/mm3 (140-440); RDW Standard Deviation 42.8 fL (36.4-46.3); White Blood Count 4.4 Thou/mm3 (3.6-11.0)
[2024-08-22 11:37] LABS: Beta HCG,Quantitative 505 mIU/mL (<5.0)
--- NOTE | 2024-08-22 12:14 | EDNOTE_ITS ---
<Statement entered by Cristina Lutz MD - 09/02/24 06:19> As co-signing physician, I was present and available for consult prn. I concur with the plan and care as documented by the midlevel provider. ED Female Urogenital RME/HPI General Chief complaint: Recheck/Abnormal Lab/Rx Stated complaint: RECHECK FROM 08/19/24 Time Seen by Provider: 08/22/24 10:32 Arrival date/time: 08/22/24 10:16 24-year-old female presents emergency department today stating that she was instructed to come back today for reevaluation patient reports that she was seen 3 days ago and told that she was having a miscarriage Limitations: no limitations Related Data Previous Rx's ?Medication ?Instructions ?Recorded ondansetron 4 mg disintegrating 4 mg PO Q8H PRN nausea and 08/22/23 tablet vomiting #10 tabs acetaminophen 500 mg capsule 1,000 mg (2 x 500 mg) PO Q8HR PRN 05/01/24 pain #30 caps ibuprofen 600 mg tablet 600 mg PO Q6H #30 tabs 05/01 acetaminophen 500 mg capsule 1,000 mg (2 x 500 mg) PO Q8HR PRN 08/20/24 pain #30 caps ondansetron 4 mg disintegrating 4 mg PO Q8H PRN nausea and 08/20/24 tablet vomiting #10 tabs doxycycline hyclate 100 mg capsule 100 mg PO BID 7 day s #14 caps 08/22/24 ibuprofen 600 mg tablet 600 mg PO Q6H #30 tabs 08/22 Allergies Allergy/AdvReac Type Severity Reaction Status Date / Time No Known Allergies Allergy Verified 08/22/24 10:18 Review of Systems Review of Systems Systems Reviewed: All systems reviewed, normal except as documented Constitutional Constitutional: Reports system reviewed and no additional complaints, except as documented, Denies fever(s) and Denies headache(s) Eyes Eyes: Reports system reviewed and no additional complaints, except as documented and Denies blurry vision ENT Ears, Nose, Mouth, and Throat: Reports system reviewed and no additional complaints, except as documented, Denies headache(s), Denies nasal congestion and Denies nasal discharge Cardiovascular Cardiovascular: Reports system reviewed and no additional complaints, except as documented, Denies chest pain and Denies dyspnea Respiratory Respiratory: Reports system reviewed and no additional complaints, except as documented, Denies chest congestion, Denies cough and Denies dyspnea Gastrointestinal Gastrointestinal: Reports system reviewed and no additional complaints, except as documented and Denies abdominal pain Genitourinary Genitourinary: Reports system reviewed and no additional complaints, except as documented and Reports abnormal vaginal bleeding Integumentary/Breasts Skin/Breast: Reports system reviewed and no additional complaints, except as documented and Denies rash Neurologic Neurologic: Reports system reviewed and no additional complaints, except as documented, Reports as per HPI and Denies headache(s) Past Medical History Past Medical History CARDIAC: Negative Cardiac Disorders or Congestive Heart Failure RESPIRATORY: Positive Asthma; Negative Chronic Obstructive Pulmonary Disease (COPD) GENITOURINARY: Negative Renal Disease ENDOCRINE: Negative Diabetes Mellitus Type 1 or Diabetes Mellitus Type 2 HEMATOLOGIC: Negative Sickle Cell Disease Social History SMOKING STATUS: Never smoker SUBSTANCE USE: does not use ED Exam General Limitations: Present no limitations General appearance: Present alert and in no apparent distress Head Head exam: Present atraumatic, normocephalic and normal inspection Eye Eye exam: Present normal appearance, PERRL and EOMI; Absent conjunctival injection ENT ENT exam: Present normal exam, normal oropharynx and mucous membranes moist Neck Neck exam: Present normal inspection, full ROM and trachea midline Chest Chest inspection: Present normal inspection and symmetric chest wall rise Respiratory Respiratory exam: Present normal lung sounds bilaterally Cardiovascular Cardiovascular exam: Present regular rate, normal rhythm and normal heart sounds Abdominal Exam Abdominal exam: Present soft and normal bowel sounds; Absent distention, tenderness, guarding, rebound or rigidity Extremities Exam Extremities exam: Present normal inspection and full ROM Back Exam Back exam: Present normal inspection and full ROM Neurological Exam Neurological exam: Present alert, oriented X3, CN II-XII intact, normal gait and reflexes normal; Absent motor sensory deficit Psychiatric Psychiatric exam: Present normal affect and normal mood Skin Skin exam: Present warm, dry, intact and normal color; Absent rash Course Quality Measures none Orders Category Date Time Status Consult to Gynecology Stat Cons 08/22/24 11:59 Ordered US OB transvaginal Stat Exams 08/22/24 10:35 Completed Beta HCG,Quantitative Stat Lab 08/22/24 11:04 Completed CBC Stat Lab 08/22/24 11:04 Completed Misoprostol [Cytotec] Med 08/22/24 12:14 Discontinued 800 mcg PO X1 ONE Vital Signs Vital signs: Vital Signs Temperature 98.3 F 08/22/24 10:31 Pulse Rate 78 08/22/24 10:31 Respiratory Rate 18 08/22/24 10:31 Blood Pressure 121/74 08/22/24 10:31 Pulse Oximetry (%) 99 08/22/24 10:31 Oxygen Delivery Method Room Air 08/22/24 10:31 O2 saturation 99% on room air with normal limits Urogenital - Female MDM Narrative MDM Narrative:: 24-year-old female presents emergency department today stating that she was instructed to come back today for reevaluation patient reports that she was seen 3 days ago and told that she was having a miscarriage Repeat lab work and imaging obtained Based on patient's lab work and imaging I consulted Dr. Corrales Consultation: Dr. Corrales came to evaluate the patient felt the patient to be given dose of misoprostol x 1 discharged on doxycycline ibuprofen and for emergent concerns return immediately Patient instructed to follow-up with [facility]MER as discussed and for worsening symptoms return immediately Patient data External records reviewed:: [facility] previous records Clinical information provided by:: patient Social determinants that could affect healthcare access:: none Patient has the following chronic illnesses:: None How is presenting disease/condition affected by chronic disease/condition?: no chronic disease Evaluation data The following diagnostics were reviewed and interpreted by me:: radiology exam(s) Lab and/or radiology exams considered but not ordered:: Labs and radiology obtain Interpretation Summary: Reviewed by me Medications / Prescriptions Medications or Prescriptions considered but not ordered:: Given Medication administrations:: Medication Administration History Discontinued Medications Misoprostol (Misoprostol 200 Mcg Tablet) 800 mcg PO X1 ONE Stop: 08/22/24 12:15 Last Admin: 08/22/24 12:32 Dose: 800 mcg Documented By: OA Given Consultations Consultation(s) initiated? (list below): Yes Consultation #1 (Physician, Specialty, Details): Dr. Corrales Diagnosis Urogenital Female Differential Diagnosis: other (Missed , threatened ) Most likely diagnosis given after review of the tests above:: Missed Admission Indicated Admission indicated?: not indicated Admission Request Was there a request for admission?: No Disposition Plan Disposition Plan: Discharge Discharge Attestation Discharge Attestation: The patient and all family members were given an opportunity to ask questions and understood the discharge instructions. Discharge instructions specifically effects, indications for sooner follow up or return to the emergency department, and the expected course of current diagnosis. Patient condition: Stable Discharge Plan Plan Patient Disposition: HOME (Self Care) Discharge Disposition comment: Stable Prescriptions/Referrals Prescriptions/Med Rec: New doxycycline hyclate 100 mg capsule 100 mg PO BID 7 Days Qty: 14 0RF ibuprofen 600 mg tablet 600 mg PO Q6H Qty: 30 0RF No Action ondansetron 4 mg tablet,disintegrating 4 mg PO Q8H PRN (Reason: nausea and vomiting) Qty: 10 0RF acetaminophen 500 mg capsule 1,000 mg PO Q8HR PRN (Reason: pain) Qty: 30 0RF ondansetron 4 mg tablet,disintegrating 4 mg PO Q8H PRN (Reason: nausea and vomiting) Qty: 10 0RF acetaminophen 500 mg capsule 1,000 mg PO Q8HR PRN (Reason: pain) Qty: 30 0RF ibuprofen 600 mg tablet 600 mg PO Q6H Qty: 30 0RF Referrals: Janene Silveira PA-C [Primary Care Provider] - 08/25/24 Terrance Corrales MD [Physician] - In 1 week Problem List Clinical Impression: , missed Patient/Caregiver Discharge Instructions Education Materials: ED Missed Miscarriage Additional Instructions: Please follow-up with Dr. Corrales as discussed for worsening symptoms or concerns return immediately Print Language: Japanese Stand Alone Forms: [place] Award Info., Work/School Release, Patient Portal Info Letter PA/JAYME Supervising Physician CELINE/JAYME Supervising Physician: Dr. LUTZ
[2024-08-22] MEDS: MISOPROSTOL 200 mCg TABLET 800 MCG PO (12:32)
[2024-08-22 12:46] VITALS: BP 122/78; PULSE 82
== END 2024-08-22 12:48 | disposition home or self-care (01) ==
PROVIDERS: Nurse Practitioner Primary Care; Emergency Provider Emergency Medicine; PCP Physician Assistant
DX: O02.1 Missed abortion (principal)
CPT/HCPCS: 36415; 76817; 84702; 85025; 99284; S0191; A9270

== ENCOUNTER 2024-08-25 11:51 | Outpatient (AMB) | payer MEDICAID, SELFPAY ==
[2024-08-25 12:07] VITALS: BP 121/63; PULSE 81; RESP 18; TEMP 36.2; O2SAT 99; BMI 28.8
--- NOTE | 2024-08-25 12:07 | AMB.GYNCLNOT ---
Vital Signs 08/25/24 12:07 Height 1.57 m Height Method Stated Weight 70.987 kg Weight Measurement Method Standing Scale BMI 28.8 BP 121/63 Blood Pressure Source Automatic Cuff Blood Pressure Location Left Upper Arm Position Sitting Respiration 18 Pulse 81 Pulse Source Monitor Temp 97.2 F Temp Source Oral Pulse Oximetry (%) 99 Oxygen Delivery Method Room Air Allergies/Home Meds Allergies & Medications Allergies No Known Allergies Allergy (Verified 08/28/24 10:23) Medication Reconciliation acetaminophen 500 mg capsule 1,000 mg (2 x 500 mg) PO Q8HR PRN pain #30 caps 05/01/24 [Rx Confirmed 08/28/24] ibuprofen 600 mg tablet 600 mg PO Q6H #30 tabs 05/01/24 [Rx Confirmed 08/28/24] acetaminophen 500 mg capsule 1,000 mg (2 x 500 mg) PO Q8HR PRN pain #30 caps 08/20/24 [Rx Confirmed 08/28/24] doxycycline hyclate 100 mg capsule 100 mg PO BID 7 days #14 caps 08/22/24 [Rx Confirmed 08/28/24] ibuprofen 600 mg tablet 600 mg PO Q6H #30 tabs 08/22/24 [Rx Confirmed 08/28/24] Intake Visit Data Collection New Patient or Established: Established Patient (seen at [facility] within 3 years) Reason for Visit:: Follow-up after medication for miscarriage, ongoing pain, pain during urination Seen by Clinical Staff ONLY (RN/MA): No 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 Do You Feel Safe at Home: Yes Authorities Contacted: N/A PCP or OBGYN visit in last 3 months: Yes Hx Now: No Are you currently on any form of Control: No Pain Present Currently: No Pain Scale Used: Collins-Obrien/Numerical Pain scale:: 0 Smoking Status Smoking Status: Never smoker 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 1. Little interest or pleasure in doing things: not at all 2. Feeling down, depressed, or hopeless: not at all Total score: 0 PHQ-9 3. Trouble falling or staying asleep, or sleeping too much: Not at all 4. Feeling tired or having little energy: Not at all 5. Poor appetite or overeating: Not at all 6. Feeling bad about yourself - or that you are a failure or have let yourself or your family down: Not at all 7. Trouble concentrating on things, such as reading the newspaper or watching television: Not at all 8. Moving or speaking so slowly that other people could have noticed? - Or the opposite - being so fidgety or restless that you have been moving around a lot more than usual: not at all 9. Thoughts that you would be better off or of hurting yourself in some way: Not at all Total score: 0 If you checked off any problems, how difficult have these problems made it for you to do your work, take care of things at home, or get along with other people?: not difficult at all Source: Developed by Drs. Mike Velarde, Liz Workman, Tristen Herrera and colleagues, with an educational shalom from [employer]. Depression screen completed yes Social History Living Situation History Marital Status: Single Lives With: Family Housing: House Tobacco History Smoking Status: Never smoker Second Hand Smoke Exposure: No Alcohol History Alcohol Intake: Never Domestic Abuse History Do You Feel Safe at Home: Yes History of Present Illness HPI Narrative Lynn Gaines presents for follow-up after receiving Misoprostol for missed/incomplete . She reports ongoing pain and discomfort when urinating. The patient confirms she took the prescribed Misoprostol as directed. She denies experiencing significant bleeding or passing any noticeable blood clots or tissue at home following the treatment. However, Lynn reports continued pain, which she describes as a lot of pain. She also mentions experiencing pain when using the restroom, specifically when urinating. The patient is taking the prescribed antibiotic (doxycycline) for a bladder infection. She has been instructed to take ibuprofen regularly for pain management, every 6 to 8 hours, rather than waiting for pain to occur. Obstetric History - GPAL: A1 L0 - Current status: Not currently , recent loss Medical History - Bladder infection (current) Medications and Supplements - Doxycycline - Prescribed for bladder infection - Ibuprofen - For pain relief - Misoprostol - For missed/incomplete management Review of Systems General: Positive for pain. Genitourinary: Positive for dysuria. Exam General General Appearance: alert, in no apparent distress and healthy appearing Head Head exam: atraumatic Neck Neck exam: Present normal inspection and trachea midline Chest Chest inspection: Present normal inspection and symmetric chest wall rise External exam: Present normal external exam; Absent tenderness Neuro Neurological exam: Present oriented X3 Psych Psychiatric exam: Present normal affect and normal mood Results Objective Laboratory: Laboratory, Imaging, and Diagnostic Test Results - Previous results: - hC, then 500 Office Procedures OB Clinic LOC & Office Proc's Nursing/Assessment Patient Status: Established Patient OB Clinic Nursing Assessment: Medication Reconciliation, Update PMH in EMR and Vital Signs OB Clinic Coordination of Care: Education Complex Pt/Fam, Consent,records obtained, informed consent, Lab and Imaging orders, Ref for ancillary service and Staff clarify orders Established Patient Charge Established Patient Point Assignment: 110 Established Patient Point Charge: EP Level 3 (80-115) Assessment & Plan Diagnosis / Problem List (1) , missed: Status: Acute Plan Lynn Gaines, female patient, presenting for follow-up after medical management of presumed ectopic or miscarriage, with ongoing pain and urinary discomfort. Post-medical management of presumed ectopic or miscarriage Assessment: Patient received medication for management of presumed ectopic or miscarriage. She reports ongoing pain and discomfort with urination. Patient has been taking prescribed antibiotics (doxycycline) for a concurrent bladder infection. The clinician attributes the current pain to soreness from the medical management process and expects it to resolve spontaneously. A follow-up ultrasound and blood test are planned to assess the effectiveness of the medical management. Plan: - Obtain quantitative hCG blood test - Schedule follow-up ultrasound - Continue doxycycline as prescribed for bladder infection - Continue ibuprofen every 6-8 hours for pain management - Follow-up appointment scheduled for Sunday or to review lab results and perform ultrasound - If hCG levels have not decreased sufficiently (goal <100), consider second round of medication
== END 2024-08-25 12:09 | disposition home or self-care (01) ==
LOC: HODSOBC 11:51
PROVIDERS: Supervising Provider Obstetrics & Gynecology; Visit Provider Obstetrics & Gynecology
DX: O02.1 Missed abortion (principal)
CPT/HCPCS: 99213; G0463

== ENCOUNTER 2024-08-28 09:54 | Outpatient (AMB) | payer MEDICAID, SELFPAY ==
[2024-08-28 10:22] VITALS: BP 115/74; PULSE 77; RESP 16; TEMP 36.4; O2SAT 98; BMI 28.4
--- NOTE | 2024-08-28 10:22 | GYNCLNT_ITS ---
Vital Signs 08/28/24 10:22 Height 1.57 m Height Method Stated Weight 70.023 kg Weight Measurement Method Standing Scale BMI 28.4 BP 115/74 Blood Pressure Source Automatic Cuff Blood Pressure Location Right Upper Arm Position Sitting Respiration 16 Pulse 77 Pulse Source Monitor Temp 97.5 F Temp Source Oral Pulse Oximetry (%) 98 Oxygen Delivery Method Room Air Allergies/Home Meds Allergies & Medications Allergies No Known Allergies Allergy (Verified 08/28/24 10:23) Medication Reconciliation acetaminophen 500 mg capsule 1,000 mg (2 x 500 mg) PO Q8HR PRN pain #30 caps 05/01/24 [Rx Confirmed 08/28/24] ibuprofen 600 mg tablet 600 mg PO Q6H #30 tabs 05/01/24 [Rx Confirmed 08/28/24] acetaminophen 500 mg capsule 1,000 mg (2 x 500 mg) PO Q8HR PRN pain #30 caps 08/20/24 [Rx Confirmed 08/28/24] ibuprofen 600 mg tablet 600 mg PO Q6H #30 tabs 08/22/24 [Rx Confirmed 08/28/24] Intake Visit Data Collection New Patient or Established: Established Patient (seen at [facility] within 3 years) Reason for Visit:: FOLLOW UP Seen by Clinical Staff ONLY (RN/MA): No 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 Do You Feel Safe at Home: Yes Authorities Contacted: N/A PCP or OBGYN visit in last 3 months: Yes Hx Now: No Are you currently on any form of Control: No Last menstrual period: 08/28/24 Pain Present Currently: Yes Pain Location: Abdomen Pain Scale Used: Collins-Obrien/Numerical Pain scale:: 4 Smoking Status Smoking Status: Never 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 1. Little interest or pleasure in doing things: not at all 2. Feeling down, depressed, or hopeless: several days Total score: 1 PHQ-9 3. Trouble falling or staying asleep, or sleeping too much: Not at all 4. Feeling tired or having little energy: Not at all 5. Poor appetite or overeating: Not at all 6. Feeling bad about yourself - or that you are a failure or have let yourself or your family down: Not at all 7. Trouble concentrating on things, such as reading the newspaper or watching television: Not at all 8. Moving or speaking so slowly that other people could have noticed? - Or the opposite - being so fidgety or restless that you have been moving around a lot more than usual: not at all 9. Thoughts that you would be better off or of hurting yourself in some way: Not at all Total score: 1 Source: Developed by Drs. Mike Velarde, Liz Workman, Tristen Herrera and colleagues, with an educational shalom from [employer]. Depression screen completed yes Social History Living Situation History Lives With: Family Housing: House Tobacco History Smoking Status: Never smoker Second Hand Smoke Exposure: No Alcohol History Alcohol Intake: Never Domestic Abuse History Do You Feel Safe at Home: Yes History of Present Illness HPI Narrative Lynn Gaines presents for a 3-day follow-up after being prescribed misoprostol for an incomplete miscarriage with retained products in the lower uterine segment. She reports ongoing bleeding, which she was informed could continue for up to 2 weeks as part of the process of clearing out any remaining tissue. She also mentions experiencing sharp pain when performing household activities like cleaning. To manage this pain, she has been taking ibuprofen, starting with 400mg and increasing to 600-800mg if needed, up to four times a day. She inquires about her ability to return to work, indicating she is scheduled to start on Sunday. She requests a notice for her employer to confirm her clearance to resume work duties. The patient's obstetric history includes a recent incomplete miscarriage with retained products in the lower uterine segment, treated with misoprostol. Her follow-up hCG levels have decreased from 5590 on 08/19/2024 to 98 on 08/25/2024, indicating complete miscarriage. Lynn has a history of an emergency room visit for the incomplete miscarriage. She is currently taking misoprostol as prescribed for the miscarriage and ibuprofen for pain management. She reports ongoing vaginal bleeding and sharp pain during physical activity. - Serum hCG (08/19/2024): 5590 - Serum hCG (08/22/2024): 505 - Serum hCG (08/25/2024): 98 Review of Systems Review of Systems Systems Reviewed: All systems reviewed, normal except as documented Exam General General Appearance: alert, in no apparent distress and healthy appearing Head Head exam: atraumatic Neck Neck exam: Present normal inspection and trachea midline Chest Chest inspection: Present normal inspection and symmetric chest wall rise External exam: Present normal external exam; Absent tenderness Neuro Neurological exam: Present oriented X3 Psych Psychiatric exam: Present normal affect and normal mood Office Procedures OB Clinic LOC & Office Proc's Nursing/Assessment Patient Status: Established Patient OB Clinic Nursing Assessment: Medication Reconciliation, Update PMH in EMR and Vital Signs OB Clinic Coordination of Care: Complex Care and Chronic Disease 1-5, Consent,records obtained, informed consent, Education Simp Pt/Fam, Lab and Imaging orders, Results/Orders obtained and Staff clarify orders Established Patient Charge Established Patient Point Assignment: 105 Established Patient Point Charge: EP Level 3 (80-115) Assessment & Plan Diagnosis / Problem List (1) , missed: Status: Acute Plan Incomplete Miscarriage with history of Retained Products of Conception: - Serial serum hCG levels: 5590 on 08/19/2024, 505 on 08/22/2024, and 98 on 08/25/2024. - Significant decline in hCG levels to below 100 indicates successful completion of miscarriage. - Ongoing mild bleeding and sharp pain with physical activity reported. Plan: - Expectant management: No further intervention required. - Anticipate continued bleeding for up to 2 weeks. - Recommend ibuprofen for pain management: - Start with 400 mg PO up to 4 times daily. - May increase to 600-800 mg PO if needed for adequate pain control. - Patient education provided: - Expect return of normal menstrual cycle in approximately one month. - Safe to attempt or initiate contraception after next menstrual period. - Return to work clearance provided for 09/01/2024. - Follow-up as needed.
== END 2024-08-28 10:52 | disposition home or self-care (01) ==
LOC: HODSOBC 09:54
PROVIDERS: PCP Obstetrics & Gynecology; Referring Provider Obstetrics & Gynecology; Supervising Provider Obstetrics & Gynecology; Visit Provider Obstetrics & Gynecology
DX: O02.1 Missed abortion (principal)
CPT/HCPCS: 99213; G0463

== ENCOUNTER → 2024-11-12 | Outpatient (CLI) | payer MEDICAID, SELFPAY ==
--- NOTE | 2024-11-12 14:55 | XR_ITS ---
Examination: Abdomen AP single view Technique: AP portable supine abdomen, single view Exam date and time: November 12, 2024 1514 hours INDICATIONS: Diarrhea one week. FINDINGS: Moderate stool throughout the colon No obstruction No free air Intact osseous structures IMPRESSION: Nonobstructive bowel gas pattern
== END | disposition home or self-care (01) ==
PROVIDERS: PCP Physician Assistant; Referring Provider Physician Assistant; Visit Provider Physician Assistant
DX: R19.7 Diarrhea, unspecified (principal)
CPT/HCPCS: 74018

== ENCOUNTER → 2024-11-27 | Outpatient (CLI) | payer MEDICAID, SELFPAY ==
--- NOTE | 2024-11-27 10:30 | XR_ITS ---
Examination: Pelvic ultrasound, transabdominal, complete Technique: Transabdominal ultrasound of the pelvis performed using grayscale imaging Date and time of exam: November 27, 2024 1046 hours INDICATIONS: Pelvic pain beginning 3 months ago. FINDINGS: Uterus 6.0 cm endometrial stripe 0.6 cm No uterine mass or intrauterine gestation Right ovary 2.8 cm arterial flow. Left ovary 2.8 cm arterial flow. Mild fluid in the cul-de-sac. IMPRESSION: Negative study
--- NOTE | 2024-11-27 10:40 | XR_ITS ---
Examination: Abdomen AP single view Technique: AP portable supine abdomen, single view Exam date and time: November 27, 2024 1130 hours, comparison November 12, 2024 INDICATIONS: Abdominal pain beginning 2 months ago. FINDINGS: Moderate stool throughout the colon. No obstruction. No free air No abnormal calcific densities IMPRESSION: Moderate stool throughout
== END | disposition home or self-care (01) ==
PROVIDERS: PCP Physician Assistant; Referring Provider Nurse Practitioner Primary Care; Visit Provider Nurse Practitioner Primary Care
DX: K59.00 Constipation, unspecified (principal)
CPT/HCPCS: 74018; 76856

== ENCOUNTER 2024-12-01 03:55 | Emergency (ER) | payer MEDICAID, SELFPAY ==
[2024-12-01 03:55] VITALS: BMI 29.2
[2024-12-01 04:08] VITALS: BP 122/78; PULSE 100; RESP 18; TEMP 36.7; O2SAT 98
--- NOTE | 2024-12-01 04:09 | XR_ITS ---
Examination: CT abdomen and pelvis without contrast. Coronal 3-D reconstructions. Sagittal 2-D reconstructions. Date and time of exam:December 01, 2024, 0450 hours INDICATIONS: Nausea vomiting diarrhea beginning November 28, 2024, comparison August 22, 2023 CTDI: vol (mGy): 8.37 DLP: (mGycm): 477 Technique: Axial images of the abdomen have been obtained, 3 mm slice thickness Intravenous contrast material has not been administered. Low dose protocols were performed. One or more of the following dose reduction techniques were used; automated exposure control, adjustment of the mA and/or KV according to patient size, use of iterative reconstruction technique. Findings: No focal liver or splenic lesions No gallstones No pancreatic or adrenal masses No renal or ureteral calculi, no hydronephrosis Mild small bowel ileus versus enteritis Normal appendix Mildly fluid distended colon Scattered colonic diverticulosis Urinary bladder is contracted with mild wall thickening The osseous structures are intact IMPRESSION: Normal appendix Mild small bowel ileus versus enteritis Mild colitis pattern. Mild cystitis pattern
--- NOTE | 2024-12-01 04:10 | PD.EDRME ---
Rapid Medical Screening Exam RME Arrival date/time: 12/01/24 03:55 This is a case of 24-year-old female with no medical history came in in the emergency room due to abdominal pain nausea vomiting for 3 days persistence of the symptoms this patient decided to start consult here in the emergency room Chief Complaint: Nausea/Vomiting/Diarrhea Time Seen by Provider: 12/01/24 04:08 Vital signs: Vital Signs Temperature 98.0 F 12/01/24 04:08 Pulse Rate 100 12/01/24 04:08 Respiratory Rate 18 12/01/24 04:08 Blood Pressure 122/78 12/01/24 04:08 Pulse Oximetry (%) 98 12/01/24 04:08 Oxygen Delivery Method Room Air 12/01/24 04:08
[2024-12-01 04:23] LABS: Collection Type, Urine Clean Catch
[2024-12-01 04:30] LABS: Bacteria,Urine 2+; Bilirubin,Urine Negative (Negative); Blood,Urine 1+ (Negative); Clarity,Urine Turbid (Clear/Hazy); Color,Urine Yellow (Lt Yel-Yel); Glucose, Urine Negative (Negative); Ketones,Urine Negative (Negative); Leukocyte Esterase,Urine Positive (Negative); Nitrite,Urine Negative (Negative); PH,Urine 6.0 (5.0-7.0); Protein,Urine Trace (Neg - Trace); RBC,Urine 5 /hpf (0-3); Specific Gravity,Urine 1.029 (1.001-1.035); Squamous Epithelial Cell,Urine 5 /hpf (0-5); Urobilinogen,Urine Negative mg/dL (0.0-1.0); WBC,Urine 5 /hpf (0-5)
[2024-12-01 04:32] LABS: HCG Qualitative,Urine Negative
[2024-12-01 04:40] LABS: Basophils # (Auto) 0.0 Thou/mm3 (0.0-0.2); Basophils % (Auto) 0 % (0-2.5); Eosinophils # (Auto) 0.0 Thou/mm3 (0.0-0.5); Eosinophils % (Auto) 0 % (0-10); Hematocrit 43.8 % (36.0-46.0); Hemoglobin 14.3 g/dL (12.0-16.0); Immature Granulocytes Auto 0.02 Thou/mm3 (0.00-0.00); Lymphocytes # (Auto) 0.6 Thou/mm3 (1.0-4.8); Lymphocytes % (Auto) 8 % (10-50); Mean Corpuscular HGB Conc 32.6 g/dl (31.0-37.0); Mean Corpuscular Hemoglobin 26.2 pg (25.0-35.0); Mean Corpuscular Volume 80 fL (80-100); Monocytes # (Auto) 0.4 Thou/mm3 (0.0-0.8); Monocytes % (Auto) 5 % (0-12); Neutrophils # (Auto) 6.4 Thou/mm3 (1.8-7.7); Neutrophils % (Auto) 87 % (37-80); Nucleated Red Blood Cell # 0.00 Thou/mm3 (0.00-0.00); Nucleated Red Blood Cell % 0 /100 WBC (0); Platelet Count 245 Thou/mm3 (140-440); RDW Standard Deviation 42.8 fL (36.4-46.3); Red Blood Count 5.45 Miln/mm3 (4.00-5.20); White Blood Count 7.3 Thou/mm3 (3.6-11.0)
[2024-12-01 04:57] LABS: Alanine Aminotransferase 11 U/L (10-49); Albumin, Serum 4.5 gm/dL (3.5-5.0); Albumin/Globulin Ratio 2.0 (1.2-2.2); Alkaline Phosphatase 66 U/L (46-116); Anion Gap 12 (7-16); Aspartate Amino Transferase 16 U/L (0-34); BUN/Creatinine Ratio 13 Ratio (12-20); Bilirubin,Total 0.3 mg/dL (0.3-1.2); Blood Urea Nitrogen 8 mg/dL (9-23); Calcium 9.4 mg/dL (8.3-10.6); Calcium (Corrected) 9.4 mg/dL (8.5-10.1); Carbon Dioxide 18.2 mMol/L (20.0-31.0); Chloride 110 mMol/L (98-107); Creatinine (Component) 0.6 mg/dL (0.6-1.3); Estimated Creatinine Clearance 136.0 mL/min (>60); Globulin 2.2 gm/dL (2.3-3.5); Glucose 112 mg/dL (74-106); Lipase 34 U/L (12-53); Osmolality,Calculated 278 (275-295); Potassium 3.8 mMol/L (3.4-5.1); Sodium 140 mMol/L (136-145); Total Protein 6.7 gm/dL (5.7-8.2); eGFR > 60 See Note
--- NOTE | 2024-12-01 05:18 | PRELIM_ITS ---
CT scan of the abdomen and pelvis without intravenous contrast (axial sections with sagittal and coronal reformats). December 01, 2024 0450 hours Clinical History: abd pain Comparison: None Findings: The unenhanced liver, gallbladder, spleen, pancreas, adrenals and kidneys are unremarkable. There is circumferential urinary bladder wall thickening which may be due to suboptimal distention or cystitis. Reproductive organs are unremarkable. There is underdistention of the stomach which limits evaluation. There are colonic diverticula without evidence of diverticulitis. There is possible acute colitis which may be of infectious or inflammatory etiology. There is no bowel obstruction. The appendix is normal. There are small amount of free dependent pelvic fluid which may be physiologic. There is no free intraperitoneal air. There is no abdominal or pelvic lymphadenopathy. Visualized lung bases are clear. There is no acute osseous abnormality. Impression: Possible cystitis. Colonic diverticula without evidence of diverticulitis. Possible acute colitis. Normal appendix. Report Electronically Signed By: aLlo Bhakta 12/01/2024 5:18:25 AM [EST]
--- NOTE | 2024-12-01 05:33 | PD.EDABDPN ---
ED Abdominal Pain RME/HPI General Chief Complaint: Nausea/Vomiting/Diarrhea Stated complaint: ABD PAIN/N/V/DIARRHEA Time seen by provider: 12/01/24 04:08 Arrival date/time: 12/01/24 03:55 This is a case of 24-year-old female with no medical history came in in the emergency room due to abdominal pain for 3 days associated with nausea vomiting and diarrhea worsening of the symptoms this patient decided to sought consult here in the emergency room Limitations: no limitations RME / HPI RME / HPI narrative: 12/01/24 03:55 This is a case of 24-year-old female with no medical history came in in the emergency room due to abdominal pain nausea vomiting for 3 days persistence of the symptoms this patient decided to start consult here in the emergency room Related Data Previous Rx's ?Medication ?Instructions ?Recorded acetaminophen 500 mg capsule 1,000 mg (2 x 500 mg) PO Q8HR PRN 05/01/24 pain #30 caps ibuprofen 600 mg tablet 600 mg PO Q6H #30 tabs 05/01/24 acetaminophen 500 mg capsule 1,000 mg (2 x 500 mg) PO Q8HR PRN 08/20/24 pain #30 caps ibuprofen 600 mg tablet 600 mg PO Q6H #30 tabs 08/22/24 amoxicillin 875 mg-potassium 1 tab PO BID #20 tabs 12/01/24 clavulanate 125 mg tablet dicyclomine 20 mg tablet 20 mg PO TID PRN abdominal pain 12/01/24 #20 tabs famotidine 20 mg tablet 20 mg PO Q12H #60 tabs 12/01/24 loperamide 2 mg capsule (Imodium 2 mg PO Q6H PRN loose stool #10 12/01/24 A-D) caps ondansetron 4 mg disintegrating 4 mg PO Q8H PRN nausea and 12/01/24 tablet vomiting #20 tabs Allergies Allergy/AdvReac Type Severity Reaction Status Date / Time No Known Allergies Allergy Verified 08/28/24 10:23 Review of Systems Review of Systems Systems Reviewed: All systems reviewed, normal except as documented Constitutional Constitutional: Reports system reviewed and no additional complaints, except as documented, Denies chills and Denies fever(s) Cardiovascular Cardiovascular: Reports system reviewed and no additional complaints, except as documented, Reports as per HPI, Denies chest pain and Denies dyspnea Respiratory Respiratory: Reports system reviewed and no additional complaints, except as documented, Reports as per HPI and Denies dyspnea Gastrointestinal Gastrointestinal: Reports system reviewed and no additional complaints, except as documented, Reports as per HPI, Reports abdominal pain, Reports diarrhea, Reports nausea and Reports vomiting Neurologic Neurologic: Reports system reviewed and no additional complaints, except as documented and Reports as per HPI Past Medical History Past Medical History CARDIAC: Negative Cardiac Disorders or Congestive Heart Failure RESPIRATORY: Positive Asthma; Negative Chronic Obstructive Pulmonary Disease (COPD) GENITOURINARY: Negative Renal Disease ENDOCRINE: Negative Diabetes Mellitus Type 1 or Diabetes Mellitus Type 2 HEMATOLOGIC: Negative Sickle Cell Disease Social History SMOKING STATUS: Never smoker SECOND HAND EXPOSURE: No SUBSTANCE USE: does not use ED Exam General Limitations: Present no limitations General appearance: Present alert, in no apparent distress and other (Patient is awake alert oriented not in distress nontoxic looking well-hydrated well-nourished) Head Head exam: Present atraumatic, normocephalic and normal inspection Eye Eye exam: Present normal appearance, PERRL and EOMI ENT ENT exam: Present normal exam, normal oropharynx and mucous membranes moist Neck Neck exam: Present normal inspection, full ROM and trachea midline; Absent tenderness Chest Chest inspection: Present normal inspection and symmetric chest wall rise; Absent tenderness Respiratory Respiratory exam: Present normal lung sounds bilaterally; Absent respiratory distress, wheezes, stridor, accessory muscle use or prolonged expiratory phase Cardiovascular Cardiovascular exam: Present regular rate, normal rhythm and normal heart sounds; Absent bradycardia, tachycardia, irregular rhythm, systolic murmur or diastolic murmur Abdominal Exam Abdominal exam: Present soft, tenderness (Mild tenderness in the periumbilical area and epigastric area no CVA tenderness) and normal bowel sounds; Absent distention, guarding, rebound, rigidity, diminished bowel sounds, hyperactive bowel sounds, hypoactive bowel sounds, organomegaly, psoas sign, obturator sign, Metzger's sign, Rovsing's sign or tenderness at McBurney's Point Extremities Exam Extremities exam: Present normal inspection and full ROM Back Exam Back exam: Present normal inspection and full ROM Neurological Exam Neurological exam: Present alert, oriented X3, CN II-XII intact, normal gait and reflexes normal; Absent motor sensory deficit Psychiatric Psychiatric exam: Present normal affect and normal mood Skin Skin exam: Present warm, dry, intact and normal color Course Quality Measures none Orders Category Date Time Status CT abdomen pelvis wo con Stat Exams 12/01/24 04:09 Taken CBC Stat Lab 12/01/24 04:35 Completed Comprehensive Metabolic Panel Stat Lab 12/01/24 04:35 Completed HCG Qualitative,Urine Stat Lab 12/01/24 04:18 Completed Lipase Stat Lab 12/01/24 04:35 Completed Urinalysis Stat Lab 12/01/24 04:18 Completed Famotidine Inj [Pepcid Inj] Med 12/01/24 05:27 Discontinued 20 mg IVP X1 ONE Morphine Inj Med 12/01/24 05:27 Discontinued 4 mg IVP X1 ONE Ondansetron Inj [Zofran Inj] Med 12/01/24 05:27 Discontinued 4 mg IVP X1 ONE Sodium Chloride 0.9% 1000 ml [Ns] 1,000 ml Med 12/01/24 05:27 Active IV 999 mls/hr cefTRIAXone/D5w 1gm IV premix [Rocephin/D5w 1gm IV Med 12/01/24 05:28 Active premix] 1 gm in 50 ml IV X1 Vital Signs Vital signs: Vital Signs Temperature 98.0 F 12/01/24 04:08 Pulse Rate 100 12/01/24 04:08 Respiratory Rate 18 12/01/24 04:08 Blood Pressure 122/78 12/01/24 04:08 Pulse Oximetry (%) 98 12/01/24 04:08 Oxygen Delivery Method Room Air 12/01/24 04:08 Patient is afebrile not tachycardic not tachypneic not hypoxic oxygen saturation is 98% on room air BP stable Abdominal Pain MDM MDM Narrative MDM Narrative:: This is a case of 24-year-old female with no medical history came in the emergency room due to abdominal pain for 3 days associated with nausea vomiting and diarrhea persistence of the symptoms this patient decided to sought consult here in the emergency room on physical examination patient is awake alert oriented not in distress nontoxic looking well-hydrated well-nourished vital signs stable BP stable nontachycardic BP stable afebrile and not hypoxic abdominal exam is benign nonsurgical no guarding no rebound no rigidity mild tenderness in the epigastric area and periumbilical area negative psoas negative straight and negative Rovsing's 911 anything Metzger sign negative CVA tenderness excellent skin turgor no signs and symptoms of sepsis dehydration no acute abdomen blood test showed no leukocytosis no anemia kidney and liver function is normal no electrolyte imbalance urinalysis is normal patient CT scan showed unremarkable except for acute colitis possible viral versus bacterial patient was given a bolus of normal saline morphine for pain Zofran for vomiting Pepcid and started on ceftriaxone for acute colitis patient was discharged with Augmentin to be taken for 10 days Zofran for vomiting Bentyl for pain Pepcid and Imodium for diarrhea patient was advised to follow-up with PCP in 2 days for reevaluation and to be referred to basketball referee for further evaluation and treatment of colitis for any recurrence persistent worsening symptoms return to the emergency room immediately or call 911 after giving medication here in the emergency room patient condition markedly improved abdominal exam is still benign no guarding no rebound no rigidity no tenderness Patient was discharged with comfortable condition walking with stable gait. Patient verbalized no further complains explained diagnosis and answered patient question. Patient is comfortable with the proposed management plan including the need to follow up with his/her primary care physician and any specialist if applicable Discussed patient for any urgent condition or worsening sx, He/She needed to go to emergency room immediately or call 911. Patient acknowledge the responsibility to follow up as instructed and to monitor her/his symptoms. For any persistence of the symptoms for more than 3-5 days return precaution advised. Discussed the result of the test and was given printed discharge instruction Patient data External records reviewed:: [facility] previous records Clinical information provided by:: patient Social determinants that could affect healthcare access:: none Patient has the following chronic illnesses:: None How is presenting disease/condition affected by chronic disease/condition?: no chronic disease Evaluation data The following diagnostics were reviewed and interpreted by me:: lab results and radiology exam(s) Lab and/or radiology exams considered but not ordered:: Reviewed Interpretation Summary: Reviewed Medications / Prescriptions Medications or Prescriptions considered but not ordered:: Given Medication administrations:: Medication Administration History Sodium Chloride (Ns) 1,000 mls @ 999 mls/hr IV .Q1H1M ONE Stop: 12/01/24 06:27 Ceftriaxone Sodium/Dextrose (Rocephin/D5w 1gm Iv Premix) 1 gm in 50 mls @ 100 mls/hr IV X1 ONE Stop: 12/01/24 05:57 Discontinued Medications Famotidine (Famotidine Inj 10 Mg/Ml Vial 2 Ml) 20 mg IVP X1 ONE Stop: 12/01/24 05:28 Morphine Sulfate (Morphine Sulf Inj 10 Mg/Ml Vial) 4 mg IVP X1 ONE Stop: 12/01/24 05:28 Ondansetron HCl (Ondansetron Inj 2 Mg/Ml Inj 2 Ml) 4 mg IVP X1 ONE; Protocol Stop: 12/01/24 05:28 Given Consultations Consultation(s) initiated? (list below): No Diagnosis Differential diagnosis abdominal pain: abdominal pain, acute appendicitis, calculus of kidney, constipation, diverticulitis, gastroenteritis, pancreatitis and other (Colitis) Most likely diagnosis given after review of the tests above:: Colitis Admission Indicated Admission indicated?: not indicated Explain why admission is indicated or not indicated:: Not indicated Admission Request Was there a request for admission?: No Admission Attestation Admission request attestation: Not indicated Disposition Plan Disposition Plan: Discharge Discharge Attestation Discharge Attestation: The patient and all family members were given an opportunity to ask questions and understood the discharge instructions. Discharge instructions specifically effects, indications for sooner follow up or return to the emergency department, and the expected course of current diagnosis. Patient condition: Stable Discharge Plan Plan Patient Disposition: HOME (Self Care) Patient condition on transfer: Stable Prescriptions/Referrals Prescriptions/Med Rec: New amoxicillin-pot clavulanate 875-125 mg tablet 1 tab PO BID Qty: 20 0RF dicyclomine 20 mg tablet 20 mg PO TID PRN (Reason: abdominal pain) Qty: 20 0RF ondansetron 4 mg tablet,disintegrating 4 mg PO Q8H PRN (Reason: nausea and vomiting) Qty: 20 0RF loperamide [Imodium A-D] 2 mg capsule 2 mg PO Q6H PRN (Reason: loose stool) Qty: 10 0RF famotidine 20 mg tablet 20 mg PO Q12H Qty: 60 0RF No Action acetaminophen 500 mg capsule 1,000 mg PO Q8HR PRN (Reason: pain) Qty: 30 0RF ibuprofen 600 mg tablet 600 mg PO Q6H Qty: 30 0RF acetaminophen 500 mg capsule 1,000 mg PO Q8HR PRN (Reason: pain) Qty: 30 0RF ibuprofen 600 mg tablet 600 mg PO Q6H Qty: 30 0RF Referrals: Janene Silveira PA-C [Primary Care Provider] - In 1 week Problem List Clinical Impression: Abdominal pain, Vomiting, Diarrhea, Colitis Patient/Caregiver Discharge Instructions Education Materials: Abdominal Pain, Understanding Colitis, ED Vomiting and Diarrhea ... Additional Instructions: Follow-up with your primary care physician in 2 days for reevaluation and to be referred to basketball referee for further evaluation and treatment of colitis recurrence persistent worsening symptoms or any emergent concern call 911 or go to the nearest emergency room take your medication as directed finish the course of antibiotic increase water intake keep hydrated Pedialyte Gatorade for every bouts of vomiting and or diarrhea Print Language: Japanese Stand Alone Forms: [place] Award Info., Patient Portal Info Letter PA/SUSTAINABLE DESIGN CONSULTANT Supervising Physician PA/SUSTAINABLE DESIGN CONSULTANT Supervising Physician: Dr. Godinez
[2024-12-01] MEDS: FAMOTIDINE INJ 10 MG/ML VIAL 2 ML 20 MG IVP (05:43)
[2024-12-01] MEDS: cefTRIAXone/D5w 1gm IV premix 1 GM/50 ML BAG IV (05:43)
[2024-12-01] MEDS: ONDANSETRON INJ 2 MG/ML INJ 2 ML 4 MG IVP (05:43)
[2024-12-01] MEDS: MORPHINE SULF INJ 10 MG/ML VIAL 4 MG IVP (05:52)
[2024-12-01] MEDS: SODIUM CHLORIDE 0.9% 1000 ML 1,000 ML 999 ML IV (05:52)
[2024-12-01 06:40] VITALS: BP 118/76; PULSE 76; RESP 18; TEMP 37; O2SAT 98
== END 2024-12-01 06:42 | disposition home or self-care (01) ==
PROVIDERS: Nurse Practitioner Family; Emergency Provider Emergency Medicine; PCP Physician Assistant
DX: K52.9 Noninfective gastroenteritis and colitis, unspecified (principal)
CPT/HCPCS: 36415; 74176; 80053; 81001; 81025; 83690; 85025; 96365; 96375; 99283; J0696; J2270; J2405; J3490; J7030